=== PATIENT | male | born 1975 | race Caucasian/White ===

== ENCOUNTER 2017-12-22 16:18 | Emergency (ER) | payer SELFPAY ==
[~2017-12-22] VITALS: Ht 185.4 cm; Wt 85.0 kg
[2017-12-22] MEDS ORDERED: chlordiazePOXIDE 25 MG CAP PO STA (17:10)
[2017-12-22 17:12] VITALS: BP 185/107; PULSE 110; RESP 15
[2017-12-22 17:13] VITALS: BP 185/107; PULSE 105
[2017-12-22] MEDS ORDERED: ACETAMINOPHEN 500 MG CPLT PO ONE (17:15)
[2017-12-22] MEDS ORDERED: SODIUM CHLORIDE 0.9% FLUSH 10 ML FLUSH IVF PRN (17:15)
[2017-12-22 17:27] VITALS: BP 169/112; PULSE 113
--- NOTE | 2017-12-22 17:46 | RADRPT ---
EXAM DATE/TIME: 12/22/2017 17:25 [facility] COMPARISON: No previous studies available for comparison. INDICATIONS : Chest pain. MEDICAL HISTORY : None. SURGICAL HISTORY : None. ENCOUNTER: Initial ACUITY: 1 day PAIN SCORE: 6/10 LOCATION: Bilateral chest FINDINGS: A single view of the chest demonstrates the lungs to be symmetrically aerated without evidence of mas s, infiltrate or effusion. The cardiomediastinal contours are unremarkable. Osseous structures are intact. CONCLUSION: No acute disease. Edwar Corea MD FACR on December 22, 2017 at 17:44 Board Certified Radiologist. This report was verified electronically.
[2017-12-22] MEDS ORDERED: LORazepam 2 MG/ML VIAL IV PUSH ONE (18:00)
--- NOTE | 2017-12-22 18:01 | RADRPT ---
EXAM DATE/TIME: 12/22/2017 17:45 [facility] COMPARISON: No previous studies available for comparison. INDICATIONS : Patient complains of dizziness. RADIATION DOSE: 37.53 CTDIvol (mGy) MEDICAL HISTORY : Cardiovascular disease. Hypertension. SURGICAL HISTORY : None. ENCOUNTER: Initial ACUITY: 1 day PAIN SCALE: 0/10 LOCATION: cranial TECHNIQUE: Multiple contiguous axial images were obtained of the head. Using automated exposure control and adj ustment of the mA and/or kV according to patient size, radiation dose was kept as low as reasonably a chievable to obtain optimal diagnostic quality images. DICOM format image data is available electro nically for review and comparison. FINDINGS: CEREBRUM: The ventricles are normal for age. No evidence of midline shift, mass lesion, hemorrhage or acute in farction. No extra-axial fluid collections are seen. POSTERIOR FOSSA: The cerebellum and brainstem are intact. The 4th ventricle is midline. The cerebellopontine angle i s unremarkable. EXTRACRANIAL: The visualized portion of the orbits is intact. There is left-sided ethmoid and maxillary sinus disea se. SKULL: The calvaria is intact. No evidence of skull fracture. CONCLUSION: 1. No acute intracranial abnormalities. Left-sided ethmoid and maxillary sinusitis. Alexander Rivera MD on December 22, 2017 at 17:57 Board Certified Radiologist. This report was verified electronically.
[2017-12-22 18:16] LABS: AUTOMATED NEUTROPHIL # 2.7 TH/MM3 (1.8-7.7); BASOPHIL % 0.6 % (0.0-2.0); HEMATOCRIT 41.2 % (39.0-51.0); HEMOGLOBIN 14.1 GM/DL (13.0-17.0); LYMPH % 24.2 % (9.0-44.0); MEAN CELL VOLUME 91.8 FL (80.0-100.0); MEAN CORPUSCULAR HEMOGLOBIN 31.4 PG (27.0-34.0); MEAN CORPUSCULAR HGB CONC 34.2 % (32.0-36.0); MEAN PLATELET VOLUME 8.4 FL (7.0-11.0); MONO % 10.1 % (0.0-8.0); MONOCYTE # 0.4 TH/MM3 (0-0.9); NEUT % 64.1 % (16.0-70.0); PLATELET COUNT 103 TH/MM3 (150-450); RED BLOOD COUNT 4.49 MIL/MM3 (4.50-5.90); WHITE BLOOD COUNT 4.3 TH/MM3 (4.0-11.0)
[2017-12-22 18:43] LABS: ALBUMIN 3.5 GM/DL (3.4-5.0); ALT (GPT) 59 U/L (12-78); AST (GOT) 87 U/L (15-37); BICARBONATE 28.6 MEQ/L (21.0-32.0); BLOOD UREA NITROGEN 7 MG/DL (7-18); CALCIUM 8.3 MG/DL (8.5-10.1); CHLORIDE 101 MEQ/L (98-107); CREATININE 0.65 MG/DL (0.60-1.30); GLOMERULAR FILTRATION RATE 133 ML/MIN (>89); GLUCOSE,RANDOM 79 MG/DL (74-106); MAGNESIUM 1.7 MG/DL (1.5-2.5); SODIUM (NA) 139 MEQ/L (136-145)
[2017-12-22 18:48] LABS: ALKALINE PHOSPHATASE 91 U/L (45-117); TOTAL BILIRUBIN ADULT 0.5 MG/DL (0.2-1.0); TOTAL PROTEIN 7.7 GM/DL (6.4-8.2); TROPONIN I LESS THAN 0.02 NG/ML (0.02-0.05)
[2017-12-22 19:09] VITALS: BP 156/99; PULSE 100; RESP 20; O2SAT 97
--- NOTE | 2017-12-22 19:16 | PD ---
HPI Chief Complaint: Chest Pain Time Seen by Provider: 17:10 Travel History International Travel<30 days: No Contact w/Intl Traveler<30days: No Traveled to known affect area: No History of Present Illness HPI Is a 42-year-old man presents to the emergency department complaining of chest pain, and left-sided numbness. States that symptoms started today or yesterday. Symptoms are very vague, and is unable to elaborate on them more fully. He does have history of CAD in the past. No history of stroke. No complaints of weakness. No other recent illness or injury. History Past Medical History Narrative Medical CAD, history of stent Tetanus Vaccination: Never Vaccinated Influenza Vaccination: No Social History Alcohol Use: Yes (ETOH ABUSE ) Tobacco Use: Yes (1/2 PPD ) Allergies-Medications (Allergen,Severity, Reaction): Coded Allergies: No Known Drug Allergies (Verified Allergy, Unknown, 12/22/17) Review of Systems Except as stated in HPI: all other systems reviewed are Neg Physical Exam Narrative GENERAL: 42-year-old man, little bit tremulous, nontoxic. SKIN: Focused skin assessment warm/dry. HEAD: Atraumatic. Normocephalic. EYES: Pupils equal and round. No scleral icterus. No injection or drainage. ENT: No nasal bleeding or discharge. Mucous membranes pink and moist. NECK: Trachea midline. No JVD. CARDIOVASCULAR: Regular rate and rhythm. No murmur appreciated. RESPIRATORY: No accessory muscle use. Clear to auscultation. Breath sounds equal bilaterally. GASTROINTESTINAL: Abdomen soft, non-tender, nondistended. Hepatic and splenic margins not palpable. MUSCULOSKELETAL: No obvious deformities. No edema peer NEUROLOGICAL: Awake and alert. No obvious cranial nerve deficits. Motor grossly within normal limits. Normal speech. PSYCHIATRIC: Appropriate mood and affect; insight and judgment normal. Data Data Last Documented VS Vital Signs Date Time Temp Pulse Resp B/P (MAP) Pulse Ox O2 Delivery O2 Flow Rate FiO2 12/22/17 19:09 100 20 156/99 (118) 97 Nasal Cannula 2.00 Orders Orders Chlordiazepoxide (Librium) (12/22/17 17:10) Electrocardiogram (12/22/17 17:10) Complete Blood Count With Diff (12/22/17 17:10) Comprehensive Metabolic Panel (12/22/17 17:10) Magnesium (Mg) (12/22/17 17:10) Troponin I (12/22/17 17:10) Chest, Single Ap (12/22/17 17:10) Ecg Monitoring (12/22/17 17:10) Bilateral Bp Monitoring (12/22/17 17:10) Iv Access Insert/Monitor (12/22/17 17:10) Oximetry (12/22/17 17:10) Oxygen Administration (12/22/17 17:10) Sodium Chloride 0.9% Flush (Ns Flush) (12/22/17 17:15) Ct Brain W/O Iv Contrast(Rout) (12/22/17 ) Acetaminophen (Tylenol) (12/22/17 17:15) Lorazepam Inj (Ativan Inj) (12/22/17 18:00) Labs Laboratory Tests Test 12/22/17 17:30 White Blood Count 4.3 TH/MM3 Red Blood Count 4.49 MIL/MM3 Hemoglobin 14.1 GM/DL Hematocrit 41.2 % Mean Corpuscular Volume 91.8 FL Mean Corpuscular Hemoglobin 31.4 PG Mean Corpuscular Hemoglobin Concent 34.2 % Red Cell Distribution Width 14.0 % Platelet Count 103 TH/MM3 Mean Platelet Volume 8.4 FL Neutrophils (%) (Auto) 64.1 % Lymphocytes (%) (Auto) 24.2 % Monocytes (%) (Auto) 10.1 % Eosinophils (%) (Auto) 1.0 % Basophils (%) (Auto) 0.6 % Neutrophils # (Auto) 2.7 TH/MM3 Lymphocytes # (Auto) 1.0 TH/MM3 Monocytes # (Auto) 0.4 TH/MM3 Eosinophils # (Auto) 0.0 TH/MM3 Basophils # (Auto) 0.0 TH/MM3 CBC Comment DIFF FINAL Differential Comment Blood Urea Nitrogen 7 MG/DL Creatinine 0.65 MG/DL Random Glucose 79 MG/DL Total Protein 7.7 GM/DL Albumin 3.5 GM/DL Calcium Level 8.3 MG/DL Magnesium Level 1.7 MG/DL Alkaline Phosphatase 91 U/L Aspartate Amino Transf (AST/SGOT) 87 U/L Alanine Aminotransferase (ALT/SGPT) 59 U/L Total Bilirubin 0.5 MG/DL Sodium Level 139 MEQ/L Potassium Level 3.5 MEQ/L Chloride Level 101 MEQ/L Carbon Dioxide Level 28.6 MEQ/L Anion Gap 9 MEQ/L Estimat Glomerular Filtration Rate 133 ML/MIN Troponin I LESS THAN 0.02 NG/ML [facility] Medical Decision Making Medical Screen Exam Complete: Yes Emergency Medical Condition: Yes Interpretation(s) Review of EKG: Sinus tachycardia rate 102, normal axis, normal intervals, LABS: CBC is unremarkable CMP is unremarkable Troponin negative Head CT: No acute intracranial abnormality Chest x-ray: Negative. Differential Diagnosis Alcohol withdrawal, ACS, anxiety, malingering, other Narrative Course Medical decision making INITIAL is a 42-year-old man who presents to the emergency department complaining of chest pain, left-sided numbness, and desire to not be discharged from the ED. He does appear to have some mild alcohol withdrawal symptoms little bit tremulousness some elevated heart rate. This improved with oral benzos. He did not receive IV benzos. Patient is requesting to be kept in the hospital because he has no vertigo. Explained that we can give him in the hospital because he is homeless. I do not think he needs further evaluation for complaints, and I think this probably represents more malingering than somatic complaints. Nonetheless cardiac workups unremarkable. A little bit of nonspecific abnormalities and EKG. Recommend outpatient follow-up. Diagnosis Primary Impression: Chest pain Additional Impression: Alcohol withdrawal Patient Instructions: General Instructions Additional Instructions: Avoid excessive alcohol use. Return to the emergency department for any worsening chest pain, numbness tingling or weakness, or any other new or worsening symptoms. Med/Other Pt SpecificInfo: No Change to Meds Disposition: 01 DISCHARGE HOME Condition: Stable Josef Moon MD Dec 22, 2017 19:15
--- NOTE | 2017-12-23 15:54 | EKG ---
Date Performed: 12/22/2017 Time Performed: 17:07:31 PTAGE: 42 years EKG: SINUS TACHYCARDIA NONSPECIFIC ST & T-WAVE ABNORMALITY ABNORMAL RHYTHM ECG NO PREVIOUS TRACING DOCTOR: Jeremy West Interpretating Date/Time 12/23/2017 15:53:25
== END 2017-12-22 19:44 | disposition home or self-care (01) ==
LOC: NEPD 16:18
DX: R07.9 Chest pain, unspecified (principal); F10.239 Alcohol dependence with withdrawal, unspecified; R20.0 Anesthesia of skin; R00.0 Tachycardia, unspecified; R94.31 Abnormal electrocardiogram [ECG] [EKG]; J32.0 Chronic maxillary sinusitis; J32.2 Chronic ethmoidal sinusitis; I25.10 Atherosclerotic heart disease of native coronary artery without angina pectoris; F17.200 Nicotine dependence, unspecified, uncomplicated
CPT/HCPCS: 70450; 71045; 80053; 83735; 84484; 85025; 93005; 99285

== ENCOUNTER 2018-03-25 10:55 | Inpatient (IN) | payer SELFPAY ==
[2018-03-25] VITALS (8 sets, daily range): BP systolic 134–195; BP diastolic 60–133; PULSE 90–129; RESP 16–20; TEMP 99.2–102.1; O2SAT 94–99
[~2018-03-25] VITALS: Ht 182.9 cm; Wt 78.3 kg
[2018-03-25] MEDS ORDERED: ASPI-516 CHEW (11:08)
[2018-03-25] MEDS ORDERED: ATOR40TA16 PO (11:08)
[2018-03-25] MEDS ORDERED: ATEN25TA PO (11:08)
[2018-03-25] MEDS ORDERED: LISI10TA3 PO (11:08)
[2018-03-25] MEDS ORDERED: VANCOMYCIN INJ 1,000 MG in SODIUM CHLOR 0.9% 250 ML INJ 250 ML IV STA (11:09)
[2018-03-25] MEDS ORDERED: SODIUM CHLOR 0.9% 1000 ML INJ 1,000 ML IV ONE (11:15)
[2018-03-25] MEDS ORDERED: ACETAMINOPHEN 325 MG TAB PO ONE (11:15)
[2018-03-25] MEDS ORDERED: PIPERACIL-TAZO 3.375 GM PREMIX 50 ML IV ONE (11:15)
--- NOTE | 2018-03-25 11:23 | PD ---
HPI Chief Complaint: Fever Time Seen by Provider: 10:59 Travel History International Travel<30 days: No Contact w/Intl Traveler<30days: No Traveled to known affect area: No History of Present Illness HPI Patient presents to the emergency department with wounds on lower extremity and fever. States that approximately 3-4 weeks ago he had a wound on his left foot that is since healed. But states that new wounds have appeared on left lower extremity, right lower extremity, and groin, right side of his face. States that the symptoms are new. Was brought in by EMS and given 500 cc normal saline , Accu-Chek was 98, temp was 102.1, heart rate 120, P1 18/62, initial O2 sat was 90% on 2 L he increased to 96%. She states that he is homeless and lives in the [facility]. He is reporting fever and chills, nausea and vomiting (po intake) , drainage from wound. He denies chest pain, shortness of breath, abdominal pain. PFSH Past Medical History Hx Anticoagulant Therapy: No Cardiac Catheterization: Yes Cardiovascular Problems: Yes (HTN ) Coronary Artery Disease: Yes Diabetes: No Hypertension: Yes Myocardial Infarction: Yes Past Surgical History Coronary Stent: Yes (X 3 ) Social History Alcohol Use: Yes (ETOH ABUSE ) Tobacco Use: Yes (1/2 PPD ) Substance Use: No Allergies-Medications (Allergen,Severity, Reaction): Coded Allergies: No Known Drug Allergies (Verified Allergy, Unknown, 12/22/17) Reported Meds & Prescriptions Reported Meds & Active Scripts Active Reported Aspirin 81 Mg Chew 81 Mg CHEW DAILY Atorvastatin (Atorvastatin Calcium) 40 Mg Tab 40 Mg PO HS Lisinopril 10 Mg Tab 10 Mg PO DAILY Atenolol 25 Mg Tab 12.5 Mg PO BID Review of Systems Except as stated in HPI: all other systems reviewed are Neg Physical Exam Narrative GENERAL: No acute distress. SKIN: Focused skin assessment warm/dry. Patient has 2 wounds anterior nixon that are draining a left lower extremity, draining wound left knee, lower extremity wounds in the thigh area, wound right hip, left upper extremity lesion (some lesions appear vesicular) HEAD: Atraumatic. Normocephalic. Right periorbital swelling. EYES: Pupils equal and round. No scleral icterus. No injection or drainage. ENT: No nasal bleeding or discharge. Mucous membranes pink and moist. NECK: Trachea midline. No JVD. CARDIOVASCULAR: Tachycardia. No murmur appreciated. RESPIRATORY: No accessory muscle use. Clear to auscultation. Breath sounds equal bilaterally. GASTROINTESTINAL: Abdomen soft, non-tender, nondistended. Hepatic and splenic margins not palpable. MUSCULOSKELETAL: No obvious deformities. No clubbing. No cyanosis. No edema. NEUROLOGICAL: Awake and alert. No obvious cranial nerve deficits. Motor grossly within normal limits. Normal speech. PSYCHIATRIC: Appropriate mood and affect; insight and judgment normal. Data Data Last Documented VS Vital Signs Date Time Temp Pulse Resp B/P (MAP) Pulse Ox O2 Delivery O2 Flow Rate FiO2 03/25/18 14:26 95 16 142/80 (100) 99 Room Air 03/25/18 12:31 99.2 Orders Orders Sepsis Workup Initiated (03/25/18 ) Electrocardiogram (03/25/18 11:09) Complete Blood Count With Diff (03/25/18 11:09) Comprehensive Metabolic Panel (03/25/18 11:09) Prothrombin Time / Inr (Pt) (03/25/18 11:09) Act Partial Throm Time (Ptt) (03/25/18 11:09) Lactic Acid Sepsis Protocol (03/25/18 11:09) Magnesium (Mg) (03/25/18 11:09) Ckmb (Isoenzyme) Profile (03/25/18 11:09) Troponin I (03/25/18 11:09) Urinalysis - C+S If Indicated (03/25/18 11:09) Blood Culture (03/25/18 11:09) Wound Culture And Gram Stain (03/25/18 11:09) Chest, Single Ap (03/25/18 11:09) Vancomycin Inj (Vancomycin Inj) (03/25/18 11:09) Piperacil-Tazo 3.375 Gm Premix (Zosyn 3. (03/25/18 11:15) Drug Screen, Random Urine (03/25/18 11:09) Acetaminophen (Tylenol) (03/25/18 11:15) B-Type Natriuretic Peptide (03/25/18 11:09) Sodium Chlor 0.9% 1000 Ml Inj (Ns 1000 M (03/25/18 11:15) Knee, Ltd (1 Or 2vws) (03/25/18 11:33) Tibia/Fibula (Ap/Lat) (03/25/18 11:33) CKMB (03/25/18 11:15) CKMB% (03/25/18 11:15) Potassium Chloride (Kcl) (03/25/18 13:15) Admit Order (Ed Use Only) (03/25/18 14:29) Diet Heart Healthy (03/25/18 Dinner) Vital Signs (Adult) NELL.Q4H (03/25/18 14:30) Acetaminophen (Tylenol) (03/25/18 14:30) Atenolol (Tenormin) (03/25/18 21:00) Atorvastatin (Lipitor) (03/25/18 21:00) Lisinopril (Prinivil) (03/26/18 09:00) Labs Laboratory Tests Test 03/25/18 11:15 03/25/18 11:41 White Blood Count 9.1 TH/MM3 Red Blood Count 4.28 MIL/MM3 Hemoglobin 13.6 GM/DL Hematocrit 40.0 % Mean Corpuscular Volume 93.4 FL Mean Corpuscular Hemoglobin 31.7 PG Mean Corpuscular Hemoglobin Concent 34.0 % Red Cell Distribution Width 14.6 % Platelet Count 169 TH/MM3 Mean Platelet Volume 8.1 FL Neutrophils (%) (Auto) 78.7 % Lymphocytes (%) (Auto) 9.9 % Monocytes (%) (Auto) 10.8 % Eosinophils (%) (Auto) 0.1 % Basophils (%) (Auto) 0.5 % Neutrophils # (Auto) 7.2 TH/MM3 Lymphocytes # (Auto) 0.9 TH/MM3 Monocytes # (Auto) 1.0 TH/MM3 Eosinophils # (Auto) 0.0 TH/MM3 Basophils # (Auto) 0.0 TH/MM3 CBC Comment DIFF FINAL Differential Comment Prothrombin Time 10.8 SEC Prothromb Time International Ratio 1.1 RATIO Activated Partial Thromboplast Time 30.1 SEC Blood Urea Nitrogen 9 MG/DL Creatinine 0.72 MG/DL Random Glucose 87 MG/DL Total Protein 8.1 GM/DL Albumin 2.9 GM/DL Calcium Level 8.1 MG/DL Magnesium Level 1.3 MG/DL Alkaline Phosphatase 97 U/L Aspartate Amino Transf (AST/SGOT) 42 U/L Alanine Aminotransferase (ALT/SGPT) 34 U/L Total Bilirubin 0.7 MG/DL Sodium Level 136 MEQ/L Potassium Level 3.3 MEQ/L Chloride Level 98 MEQ/L Carbon Dioxide Level 25.9 MEQ/L Anion Gap 12 MEQ/L Estimat Glomerular Filtration Rate 118 ML/MIN Lactic Acid Level 1.4 mmol/L Total Creatine Kinase 161 U/L Creatine Kinase MB 1.3 NG/ML Troponin I LESS THAN 0.02 NG/ML B-Type Natriuretic Peptide 49 PG/ML Urine Color Mara Urine Turbidity CLEAR Urine pH 6.0 Urine Specific [place] 1.026 Urine Protein 100 mg/dL Urine Glucose (UA) NEG mg/dL Urine Ketones TRACE mg/dL Urine Occult Blood SMALL Urine Nitrite NEG Urine Bilirubin NEG Urine Urobilinogen 4.0 OR GREATER mg/dL Urine Leukocyte Esterase NEG Urine RBC 3 /hpf Urine WBC 3 /hpf Urine Squamous Epithelial Cells <1 /hpf Urine Hyaline Casts 3 /lpf Microscopic Urinalysis Comment CATH-CULT NOT IND Urine Opiates Screen NEG Urine Barbiturates Screen NEG Urine Amphetamines Screen NEG Urine Benzodiazepines Screen NEG Urine Cocaine Screen NEG Urine Cannabinoids Screen POS MDM Medical Decision Making Medical Screen Exam Complete: Yes Emergency Medical Condition: Yes Interpretation(s) ECG: Sinus tach, rate 106, QTc 401, normal axis Labs: Normal WBC count, normal lactate, normal coags, elevated AST, UA-trace ketones, small blood; UDS positive for cannabinoids Last Impressions Tibia/Fibula X-Ray 03/25/18 1133 Signed Impressions: CONCLUSION: 1. Intact well-positioned lateral malleolus fixation hardware. 2. No acute fracture or dislocation. Knee X-Ray 03/25/18 1133 Signed Impressions: CONCLUSION: 1. No acute fracture or dislocation. Chest X-Ray 03/25/18 1109 Signed Impressions: CONCLUSION: No acute cardiopulmonary findings are identified. Differential Diagnosis Cellulitis, pneumonia, UTI, sepsis, abscess, herpes Narrative Course He presents to the emergency department with skin infections, fever, and tachycardia. Concern for sepsis. Patient placed on gambling monitor, IV access obtained, EKG/x-ray/labs ordered with IV 1 g vancomycin and 3.375g Zosyn and 1 g of Tylenol p.o. As well as 1 L IV normal saline. 1312: Patient given 20 mEQ of potassium p.o. 1432: HR 94, temp 99.1. Patient has been admitted. Sepsis Criteria SIRS Criteria (2 or more): Temp > 100.9 or < 96.8, Heart rate over 90 Sepsis Criteria (SIRS+source): Infect source susp/known Diagnosis Primary Impression: Cellulitis Qualified Codes: L03.119 - Cellulitis of unspecified part of limb Additional Impression: Hypokalemia Admitting Information Admitting Physician Requests: Admit Condition: Stable Grecia Loza MD Mar 25, 2018 11:23
[2018-03-25 11:29] LABS: AUTOMATED NEUTROPHIL # 7.2 TH/MM3 (1.8-7.7); BASOPHIL % 0.5 % (0.0-2.0); EOSINOPHIL % 0.1 % (0.0-4.0); HEMOGLOBIN 13.6 GM/DL (13.0-17.0); LYMPH % 9.9 % (9.0-44.0); LYMPHOCYTE # 0.9 TH/MM3 (1.0-4.8); MEAN CELL VOLUME 93.4 FL (80.0-100.0); MEAN CORPUSCULAR HEMOGLOBIN 31.7 PG (27.0-34.0); MEAN PLATELET VOLUME 8.1 FL (7.0-11.0); MONO % 10.8 % (0.0-8.0); NEUT % 78.7 % (16.0-70.0); PLATELET COUNT 169 TH/MM3 (150-450); RED BLOOD COUNT 4.28 MIL/MM3 (4.50-5.90); RED CELL DISTRIBUTION WIDTH 14.6 % (11.6-17.2); WHITE BLOOD COUNT 9.1 TH/MM3 (4.0-11.0)
--- NOTE | 2018-03-25 11:38 | RADRPT ---
EXAM DATE: 03/25/2018 11:31 AM EDT AGE/SEX: 43 years / Male INDICATIONS: Fever. Possible infection of abrasions on his skin CLINICAL DATA: This is the patient's initial encounter. Patient reports that signs and symptoms have been present for 1 day and indicates a pain score of 0/10. MEDICAL/SURGICAL HISTORY: . heart attack . coronary artery stents COMPARISON: [facility], CHEST SINGLE AP, 12/22/2017. . FINDINGS: A single AP view of the chest demonstrates the lungs to be symmetrically aerated without evidence of mass, infiltrate or effusion. The cardiomediastinal contours are unremarkable. Osseous structures d emonstrate old healed fracture of the left anterior ninth rib. CONCLUSION: No acute cardiopulmonary findings are identified. Electronically signed by: Ray Corea MD 03/25/2018 11:36 AM EDT
[2018-03-25 11:44] LABS: INTERNATIONAL NORMALIZED RATIO 1.1 RATIO; PROTHROMBIN TIME - PATIENT 10.8 SEC (9.8-11.6)
[2018-03-25 11:52] LABS: ALBUMIN 2.9 GM/DL (3.4-5.0); ALT (GPT) 34 U/L (12-78); AST (GOT) 42 U/L (15-37); BICARBONATE 25.9 MEQ/L (21.0-32.0); BLOOD UREA NITROGEN 9 MG/DL (7-18); CALCIUM 8.1 MG/DL (8.5-10.1); CHLORIDE 98 MEQ/L (98-107); CREATININE 0.72 MG/DL (0.60-1.30); GLOMERULAR FILTRATION RATE 118 ML/MIN (>89); GLUCOSE,RANDOM 87 MG/DL (74-106); MAGNESIUM 1.3 MG/DL (1.5-2.5); SODIUM (NA) 136 MEQ/L (136-145)
[2018-03-25 11:57] LABS: ALKALINE PHOSPHATASE 97 U/L (45-117); TOTAL BILIRUBIN ADULT 0.7 MG/DL (0.2-1.0); TOTAL PROTEIN 8.1 GM/DL (6.4-8.2); TROPONIN I LESS THAN 0.02 NG/ML (0.02-0.05)
[2018-03-25 12:12] LABS: BLOOD, URINE SMALL (NEG); GLUCOSE,URINE NEG (NEG); HYALINE CAST, URINE 3 /lpf (RARE); KETONE, URINE TRACE mg/dL (NEG); NITRITE,URINE NEG (NEG); SQUAMOUS EPITHELIAL CELL URINE <1 /hpf (0-5); URINE COLOR Amber (YELLW/STRAW); URINE LEUKOCYTE ESTERASE NEG (NEG)
[2018-03-25 12:20] LABS: BILIRUBIN, URINE NEG (NEG)
--- NOTE | 2018-03-25 13:14 | RADRPT ---
EXAM DATE: 03/25/2018 1:05 PM EDT AGE/SEX: 43 years / Male INDICATIONS: Anterior left lower leg abrasions and wounds. Patient fell several days ago. CLINICAL DATA: This is the patient's initial encounter. Patient reports that signs and symptoms have been present for 4 - 6 days and indicates a pain score of 6/10. MEDICAL/SURGICAL HISTORY: None. . ORIF left fibula. Left 5th toe amputation. COMPARISON: No prior exams available for comparison. FINDINGS: Plate and screw fixation of the distal fibula/lateral malleolus. Hardware appears intact and well-pos itioned. Bony structures are intact and in normal alignment. Osseous density is normal. Soft tissues are unremarkable. No radiopaque foreign bodies seen. CONCLUSION: 1. Intact well-positioned lateral malleolus fixation hardware. 2. No acute fracture or dislocation. Electronically signed by: Sean Babcock MD 03/25/2018 1:13 PM EDT
[2018-03-25] MEDS ORDERED: POTASSIUM CHLORIDE 20 MEQ CONTROLLED RELEASE TAB PO ONE (13:15)
--- NOTE | 2018-03-25 13:15 | RADRPT ---
EXAM DATE: 03/25/2018 1:02 PM EDT AGE/SEX: 43 years / Male INDICATIONS: Anterior left knee abrasions and swelling. Patient fell several days ago. CLINICAL DATA: This is the patient's initial encounter. Patient reports that signs and symptoms have been present for 4 - 6 days and indicates a pain score of 6/10. MEDICAL/SURGICAL HISTORY: None. None. COMPARISON: No prior exams available for comparison. FINDINGS: Bony structures are intact and in normal alignment. Joints are intact without dislocation or signifi cant arthropathy. Osseous density is normal. Soft tissues are unremarkable. No radiopaque foreign bodies seen. CONCLUSION: 1. No acute fracture or dislocation. Electronically signed by: Sean Babcock MD 03/25/2018 1:13 PM EDT
[2018-03-25] MEDS ORDERED: ACETAMINOPHEN 325 MG TAB PO PRN (14:30)
[2018-03-25] MEDS ORDERED: Vancomycin Consult Pharmacy 1 EA OTHER SCH (14:45)
[2018-03-25] MEDS ORDERED: FLUMAZENIL 0.5 MG/5 ML VIAL IV PUSH PRN (15:30)
[2018-03-25] MEDS ORDERED: LORazepam 2 MG TAB PO PRN (15:30)
[2018-03-25] MEDS ORDERED: LORazepam 2 MG/ML VIAL IV PUSH PRN ×4 (15:30)
[2018-03-25] MEDS ORDERED: PILL SPLITTER OTHER PRN (15:30)
--- NOTE | 2018-03-25 15:48 | HHI.HP ---
[facility] No Primary Care Physician Admission Diagnosis cellulitis, Diagnoses: (1) Cellulitis Diagnosis: Principal Chief Complaint: infection of the left leg Travel History International Travel<30 Days: No Contact w/Intl Traveler <30 Da: No Traveled to Known Affected Are: No Sepsis Criteria SIRS Criteria (2 or more): Temp > 100.9 or < 96.8, Heart rate over 90 Sepsis Criteria (SIRS+source): Infect source susp/known Criteria Outcome: Meets sepsis criteria History of Present Illness patient is a 43 y/o male, homeless, with history of CAD, dyslipidemia and hypertension, who presented to ER with redness and pain to the left leg. he says that he noticed a couple of wounds on his left leg two weeks ago which gradually got worse. he says that he 'keeps having wounds on his legs'. he's not sure if he had any fever. pain to the left leg is moderate. he doesn't recall any insect bites but he says that he fell on his left knee two weeks ago.he says that he stopped taking his medications while ago. Review of Systems Constitutional: DENIES: Fever, Weight loss, Chills, Night Sweats Eyes: DENIES: Blurred vision, Diplopia, Vision loss, Double Vision Ears, nose, mouth, throat: DENIES: Tinnitus, Vertigo, Throat pain, Epistaxis Respiratory: DENIES: Apneas, Cough, Snoring, Wheezing, Hemoptysis, Sputum production, Shortness of breath Cardiovascular: DENIES: Chest pain, Palpitations, Syncope, Dyspnea on Exertion , PND, Lower Extremity Edema, Orthopnea, Claudication Gastrointestinal: DENIES: Abdominal pain, Black stools, Bloody stools, Constipation, Diarrhea, Nausea, Vomiting, Difficulty Swallowing, Anorexia Genitourinary: DENIES: Urinary frequency, Urgency, Hematuria, Dysuria Musculoskeletal: COMPLAINS OF: Joint pain, DENIES: Muscle aches, Stiffness, Joint Swelling Integumentary: DENIES: Rash Neurologic: DENIES: Abnormal gait, Headache, Localized weakness, Paresthesias, Seizures, Speech Problems, Tremor, Poor Balance Psychiatric: DENIES: Anxiety, Confusion, Mood changes, Depression, Hallucinations, Agitation, Suicidal Ideation, Homicidal Ideation, Delusions Past Family Social History Past Medical History hypertension/ dyslipidemia Past Surgical History cardiac stent placement/ foot surgery. Reported Medications atenolol/ lisinopril/ atorvastatin/aspirin Allergies: Coded Allergies: No Known Drug Allergies (Verified Allergy, Unknown, 12/22/17) Active Ordered Medications Inpatient Medications Acetaminophen (Tylenol) 650 mg Q4H PRN PO FEVER/PAIN 1-10; Start 03/25/18 at 14 :30 Atenolol (Tenormin) 12.5 mg BID PO ; Start 03/25/18 at 21:00 Atorvastatin Calcium (Lipitor) 40 mg HS PO ; Start 03/25/18 at 21:00 Lisinopril (Prinivil) 10 mg DAILY PO ; Start 03/26/18 at 09:00 Miscellaneous (Pill Splitter) 1 ea UNSCH PRN OTHER SEE LABEL COMMENTS; Start at 15:30 Pharmacy Profile Note 0 ml @ 0 mls/hr UNSCH OTHER ; Start 03/25/18 at 14:45 Piperacillin Sod/ Tazobactam Sod 50 ml @ 100 mls/hr Q6H IV ; Start 03/25/18 at 18:00 Potassium Chloride (KCl) 20 meq ONCE ONCE PO Last administered on 03/25/18at 13 :57; Start 03/25/18 at 13:15; Stop 03/25/18 at 13:16; Status DC Sodium Chloride 1,000 ml @ 999 mls/hr BOLUS ONCE IV Last administered on 03/25at 11:28; Start 03/25/18 at 11:15; Stop 03/25/18 at 12:15; Status DC Vancomycin HCl 1000 mg/Sodium Chloride 250 ml @ 250 mls/hr ONCE STAT IV Last administered on 03/25/18at 12:29; Start 03/25/18 at 11:09; Stop 03/25/18 at 12:08 ; Status DC Family History not related to this admission. Social History smokes a pack a day. drinks almost daily. Physical Exam Vital Signs Vital Signs Date Time Temp Pulse Resp B/P (MAP) Pulse Ox O2 Delivery O2 Flow Rate FiO2 03/25/18 15:19 95 16 138/87 (104) 97 Room Air 03/25/18 14:26 95 16 142/80 (100) 99 Room Air 03/25/18 12:31 99.2 109 18 141/65 (90) 99 Room Air 03/25/18 11:03 130 18 96 Room Air 03/25/18 11:03 129 18 153/79 (103) 97 Room Air 03/25/18 10:58 102.1 123 18 157/80 (105) 94 Physical Exam GENERAL: This is a well-nourished, well-developed patient, in no apparent distress. SKIN: open wounds noted on the left leg - a few dry wounds noted on the right lower extremity. HEAD: Atraumatic. Normocephalic. No temporal or scalp tenderness. EYES: Pupils equal round and reactive. Extraocular motions intact. No scleral icterus. No injection or drainage. ENT: Nose without bleeding, purulent drainage or septal hematoma. Throat without erythema, tonsillar hypertrophy or exudate. Uvula midline. Airway patent. NECK: Trachea midline. No JVD or lymphadenopathy. Supple, nontender, no meningeal signs. CARDIOVASCULAR: Regular rate and rhythm without murmurs, gallops, or rubs. RESPIRATORY: Clear to auscultation. Breath sounds equal bilaterally. No wheezes , rales, or rhonchi. GASTROINTESTINAL: Abdomen soft, non-tender, nondistended. No hepato-splenomegaly , or palpable masses. No guarding. MUSCULOSKELETAL: erythema noted over the left leg. NEUROLOGICAL: Awake and alert. Cranial nerves II through XII intact. Motor and sensory grossly within normal limits. Five out of 5 muscle strength in all muscle groups. Normal speech. Laboratory Laboratory Tests Test 03/25/18 11:15 03/25/18 11:41 White Blood Count 9.1 Red Blood Count 4.28 Hemoglobin 13.6 Hematocrit 40.0 Mean Corpuscular Volume 93.4 Mean Corpuscular Hemoglobin 31.7 Mean Corpuscular Hemoglobin Concent 34.0 Red Cell Distribution Width 14.6 Platelet Count 169 Mean Platelet Volume 8.1 Neutrophils (%) (Auto) 78.7 Lymphocytes (%) (Auto) 9.9 Monocytes (%) (Auto) 10.8 Eosinophils (%) (Auto) 0.1 Basophils (%) (Auto) 0.5 Neutrophils # (Auto) 7.2 Lymphocytes # (Auto) 0.9 Monocytes # (Auto) 1.0 Eosinophils # (Auto) 0.0 Basophils # (Auto) 0.0 CBC Comment DIFF FINAL Differential Comment Prothrombin Time 10.8 Prothromb Time International Ratio 1.1 Activated Partial Thromboplast Time 30.1 Blood Urea Nitrogen 9 Creatinine 0.72 Random Glucose 87 Total Protein 8.1 Albumin 2.9 Calcium Level 8.1 Magnesium Level 1.3 Alkaline Phosphatase 97 Aspartate Amino Transf (AST/SGOT) 42 Alanine Aminotransferase (ALT/SGPT) 34 Total Bilirubin 0.7 Sodium Level 136 Potassium Level 3.3 Chloride Level 98 Carbon Dioxide Level 25.9 Anion Gap 12 Estimat Glomerular Filtration Rate 118 Lactic Acid Level 1.4 Total Creatine Kinase 161 Creatine Kinase MB 1.3 Troponin I LESS THAN 0.02 B-Type Natriuretic Peptide 49 Urine Color Mara Urine Turbidity CLEAR Urine pH 6.0 Urine Specific [place] 1.026 Urine Protein 100 Urine Glucose (UA) NEG Urine Ketones TRACE Urine Occult Blood SMALL Urine Nitrite NEG Urine Bilirubin NEG Urine Urobilinogen 4.0 OR GREATER Urine Leukocyte Esterase NEG Urine RBC 3 Urine WBC 3 Urine Squamous Epithelial Cells <1 Urine Hyaline Casts 3 Microscopic Urinalysis Comment CATH-CULT NOT IND Urine Opiates Screen NEG Urine Barbiturates Screen NEG Urine Amphetamines Screen NEG Urine Benzodiazepines Screen NEG Urine Cocaine Screen NEG Urine Cannabinoids Screen POS Date/Time Source Procedure Growth Status 03/25/18 11:15 Blood Peripheral Aerobic Blood Culture Pending Received 03/25/18 11:15 Blood Peripheral Anaerobic Blood Culture Pending Received 03/25/18 11:30 Wound Leg Gram Stain - Final Resulted 03/25/18 11:30 Wound Leg Wound Culture Pending Resulted Result Diagram: 03/25/18 1115 03/25/18 1115 Imaging Last Impressions Tibia/Fibula X-Ray 03/25/18 1133 Signed Impressions: CONCLUSION: 1. Intact well-positioned lateral malleolus fixation hardware. 2. No acute fracture or dislocation. Knee X-Ray 03/25/18 1133 Signed Impressions: CONCLUSION: 1. No acute fracture or dislocation. Chest X-Ray 03/25/18 1109 Signed Impressions: CONCLUSION: No acute cardiopulmonary findings are identified. Caprini VTE Risk Assessment Caprini VTE Risk Assessment: Mod/High Risk (score >= 2) Caprini Risk Assessment Model Point Value = 1 Point Value = 2 Point Value = 3 Point Value = 5 Age 41-60 Minor surgery BMI > 25 kg/m2 Swollen legs Varicose veins or History of unexplained or recurrent spontaneous Oral contraceptives or hormone replacement Sepsis (< 1 month) Serious lung disease, including pneumonia (< 1 month) Abnormal pulmonary function Acute myocardial infarction Congestive heart failure (< 1 month) History of inflammatory bowel disease Medical patient at bed rest Age 61-74 Arthroscopic surgery Major open surgery (> 45 min) Laparoscopic surgery (> 45 min) Malignancy Confined to bed (> 72 hours) Immobilizing plaster cast Central venous access Age >= 75 History of VTE Family history of VTE Factor V Leiden Prothrombin [id number] Lupus anticoagulant Anticardiolipin antibodies Elevated serum homocysteine Heparin-induced thrombocytopenia Other congenital or acquired thrombophilia Stroke (< 1 month) Elective arthroplasty Hip, pelvis, or leg fracture Acute spinal cord injury (< 1 month) Prophylaxis Regimen Total Risk Factor Score Risk Level Prophylaxis Regimen 0-1 Low Early ambulation 2 Moderate Order ONE of the following: *Sequential Compression Device (SCD) *Heparin 5000 units SQ BID 3-4 Higher Order ONE of the following medications: *Heparin 5000 units SQ TID *Enoxaparin/Lovenox 40 mg SQ daily (WT < 150 kg, CrCl > 30 mL/min) *Enoxaparin/Lovenox 30 mg SQ daily (WT < 150 kg, CrCl > 10-29 mL/min) *Enoxaparin/Lovenox 30 mg SQ BID (WT < 150 kg, CrCl > 30 mL/min) AND/OR *Sequential Compression Device (SCD) 5 or more Highest Order ONE of the following medications: *Heparin 5000 units SQ TID (Preferred with Epidurals) *Enoxaparin/Lovenox 40 mg SQ daily (WT < 150 kg, CrCl > 30 mL/min) *Enoxaparin/Lovenox 30 mg SQ daily (WT < 150 kg, CrCl > 10-29 mL/min) *Enoxaparin/Lovenox 30 mg SQ BID (WT < 150 kg, CrCl > 30 mL/min) AND *Sequential Compression Device (SCD) Assessment and Plan Assessment and Plan A/P - sepsis due to cellulitis of the left leg continue with broad spectrum IV antibiotics- leg elevation- continue with pain control- will follow the cultures and consult ID. -CAD/ hypertension/ dyslipidemia; resume home meds. ( patient says that he stopped taking his medications while ago). -chronic smoker/ alcohol abuse; start on nicotine patch and CIWA protocol. -hypokalemia/hypomagnesemia; will replace and monitor. -consult case management since the patient is homeless. -DVT prophylaxis; subq Lovenox Discussed Condition With ER physician and the patient. Physician Certification 2 Midnight Certification Type: Admission for Inpatient Services Order for Inpatient Services The services are ordered in accordance with Medicare regulations or non- Medicare payer requirements, as applicable. In the case of services not specified as inpatient-only, they are appropriately provided as inpatient services in accordance with the 2-midnight benchmark. Estimated LOS (days): 2 days is the estimated time the patient will need to remain in the hospital, assuming treatment plan goals are met and no additional complications. Post-Hospital Plan: Home Problem Qualifiers (1) Cellulitis: Qualified Codes: L03.119 - Cellulitis of unspecified part of limb Dwight Cook MD Mar 25, 2018 15:48
[2018-03-25] MEDS: NICOTINE 21 MG/24 HR PATCH T-DERMAL SCH (16:36)
[2018-03-25] MEDS: MAGNESIUM OXIDE 400 MG TAB PO SCH ×2 (16:36→20:31)
[2018-03-25] MEDS: PIPERACIL-TAZO 3.375 GM PREMIX 50 ML IV SCH ×2 (18:00→19:00)
--- NOTE | 2018-03-25 18:42 | MB ---
cc: Wilson Hyatt MD DATE: 03/25/2018 REQUESTING PHYSICIAN: Dr. Dwight Cook. REASON FOR CONSULTATION: Cellulitis of the left leg. HISTORY OF PRESENT ILLNESS: This is a 43-year-old white male who was brought into the emergency department today with fever. The patient notes that he developed a wound on his left foot approximately 4 weeks ago, and after that, he started getting new lesions all over his legs and at the groin. He also notes that recently he has been having swelling of his right eyelid and when he woke up in the morning, his right eye would be shut because of the swelling. He was brought to the emergency department by EMS and was noted to have a temperature of 102.1 degrees. The patient also reported he was complaining of fever and chills and nausea and vomiting. The patient denies other symptoms except for generalized aches of his body. He notes heavy alcohol intake. He thinks he possibly could have been bitten by an insect in the [place] before this all began. His white blood cell count is 9.1. He denies IV drug use. Blood cultures were drawn and the results are pending. The culture of the wound of the left leg is pending. PAST MEDICAL HISTORY: Hypertension and dyslipidemia. PAST SURGICAL HISTORY: History of cardiac stent and history of surgery on the foot. ALLERGIES: NO KNOWN DRUG ALLERGIES. MEDICATIONS: 1. Vancomycin. 2. Piperacillin-tazobactam. 3. Lipitor. 4. Tenormin. 5. Aspirin. 6. Theragran. 7. Nicotine patch. 8. Magnesium oxide. SOCIAL HISTORY: Positive tobacco use, half a pack a day. Positive alcohol use. Denies IV drug use. The patient notes that he was recently and moved from [place], [place] to [place] to try to get his life going again. He was born in [place]. FAMILY HISTORY: Noncontributory. REVIEW OF SYSTEMS: Pertinent mentioned above in history of present illness. PHYSICAL EXAMINATION: GENERAL: Well-developed male who is in no acute distress. He looks chronically ill. VITAL SIGNS: Includes temperature 99.2, BP 134/60, respirations 16, heart rate 90. HEENT: Head is atraumatic. The right eye stuck shut with purulent creamy crusted debris. The left eye opens freely and has no visible lesions. The left pupil is reactive and has no icterus. Oropharynx mucosa is moist. Positive thrush on the tongue. NECK: Supple without adenopathy. LUNGS: Clear breath sounds. HEART: Regular S1, S2, without murmurs, rubs or gallops. ABDOMEN: Bowel sounds present. Soft, nontender. RECTAL: Not performed. EXTREMITIES: The left leg is erythematous and there are a few erythematous lesions including a long lesion which has raised edges and pale white creamy edges. The other lesions also had some pale creamy raised edges. There are lesions of the tibia, thigh, right groin and also left leg. SKIN: Diffuse erythematous hue of the chest, face, neck and arms. Skin warm and moist. No diffuse rash appreciated. NEUROLOGIC: No gross focal finding. PSYCHIATRIC: Patient is calm and cooperative. LABORATORY DATA: WBC 9.1, platelets 169, 78% neutrophils. Creatinine 0.72, BUN 9, sodium 136, AST 42, ALT 34, alkaline phosphatase 97. Drug toxicology screen positive for cannabinoids. IMPRESSION: 1. Cellulitis involving the left leg. The patient has multiple skin lesions suggesting superficial skin abscesses. 2. Oral thrush. 3. Possible sepsis. The patient presented with elevated temperature and heart rate. However, lactic acid level is normal. RECOMMENDATIONS: 1. Continue vancomycin. 2. Continue piperacillin-tazobactam. 3. Follow wound culture. 4. Follow blood cultures. 5. Follow clinical status. 6. Nystatin swish and swallow for oral thrush. 7. Saline eyedrops can be applied to the eyes to help clean off the debris so the patient can open his eyes freely. Thank you for this consultation. I will follow the patient's progress along with you. MD FRACISCO Clements/KIM , 05:36 PM , 06:41 PM
[2018-03-25] MEDS: NYSTATIN SUSP 500,000 U/5 ML CUP SWISH-SWAL SCH (20:30)
[2018-03-25] MEDS: LORazepam 1 MG TAB PO PRN (20:31)
[2018-03-25] MEDS: ATENOLOL 25 MG TAB PO SCH (20:32)
[2018-03-25] MEDS: ATORVASTATIN 40 MG TAB PO SCH (20:32)
[2018-03-25] MEDS: ACETAMINOPHEN/HYDROcodone 325 MG/5 MG TAB PO PRN (20:35)
[2018-03-26] VITALS (7 sets, daily range): BP systolic 142–179; BP diastolic 95–117; PULSE 83–102; RESP 18–20; TEMP 98.2–99.2; O2SAT 95–97
[2018-03-26] MEDS: PIPERACIL-TAZO 3.375 GM PREMIX 50 ML IV SCH ×4 (01:50→19:20)
[2018-03-26] MEDS: VANCOMYCIN 1,000 MG/NS 250 ML IV SCH ×4 (01:50→12:19)
[2018-03-26] MEDS: LORazepam 1 MG TAB PO PRN (02:09)
[2018-03-26] MEDS: ACETAMINOPHEN/HYDROcodone 325 MG/5 MG TAB PO PRN ×2 (02:10→10:05)
[2018-03-26 07:52] LABS: BICARBONATE 26.3 MEQ/L (21.0-32.0); CALCIUM 8.5 MG/DL (8.5-10.1); CREATININE 0.51 MG/DL (0.60-1.30); MAGNESIUM 1.3 MG/DL (1.5-2.5)
[2018-03-26] MEDS: REMOVE OLD PATCH T-DERMAL SCH (09:00)
[2018-03-26] MEDS: ENOXAPARIN SODIUM 40 MG/0.4 ML SYRINGE SQ SCH (09:51)
[2018-03-26] MEDS: ATENOLOL 25 MG TAB PO SCH ×2 (09:51→20:27)
[2018-03-26] MEDS: ASPIRIN 81 MG CHEW TAB CHEW SCH (09:51)
[2018-03-26] MEDS: MAGNESIUM OXIDE 400 MG TAB PO SCH ×2 (09:51→20:26)
[2018-03-26] MEDS: NYSTATIN SUSP 500,000 U/5 ML CUP SWISH-SWAL SCH ×4 (09:52→20:27)
[2018-03-26] MEDS: LISINOPRIL 10 MG TAB PO SCH (09:52)
[2018-03-26] MEDS: MULTIVITAMIN TAB PO SCH (09:52)
[2018-03-26] MEDS: NICOTINE 21 MG/24 HR PATCH T-DERMAL SCH (09:56)
[2018-03-26] MEDS ORDERED: ARTIFICIAL TEARS OPTH SOLN 15 ML BTL EACH EYE PRN (10:30)
[2018-03-26] MEDS ORDERED: THIAMINE HCL 100 MG TAB PO ONE (10:30)
[2018-03-26] MEDS ORDERED: MAGNESIUM SULFATE 4 GM PREMIX 100 ML IV ONE (10:30)
[2018-03-26] MEDS ORDERED: POTASSIUM CHLORIDE 20 MEQ CONTROLLED RELEASE TAB PO ONE ×2 (10:30→14:30)
[2018-03-26] MEDS ORDERED: FOLIC ACID 1 MG TAB PO ONE (10:30)
--- NOTE | 2018-03-26 10:40 | HHI.PR ---
Subjective Remarks patient is a 43 y/o male, homeless, with history of CAD, dyslipidemia and hypertension, who presented to ER with redness and pain to the left leg. he says that he noticed a couple of wounds on his left leg two weeks ago which gradually got worse. he says that he 'keeps having wounds on his legs'. he's not sure if he had any fever. pain to the left leg is moderate. he doesn't recall any insect bites but he says that he fell on his left knee two weeks ago.he says that he stopped taking his medications while ago. 03-26 PATIENT HAS MULTIPLE WOUNDS ON HIS BODY IS HOMELESS AND STATES [place] RN AND PT SEEN BY ID ON ZOSYN AND VANCO REPLACE POTASSIUM AND MAGNESIUM AM LABS Objective Vitals Vital Signs Date Time Temp Pulse Resp B/P (MAP) Pulse Ox O2 Delivery O2 Flow Rate FiO2 03/26/18 04:25 102 03/26/18 04:12 Room Air 03/26/18 04:00 99.2 97 18 142/99 (113) 95 03/26/18 00:00 Room Air 03/26/18 00:00 98.8 92 18 179/117 (137) 97 03/26/18 00:00 97 03/25/18 20:00 123 03/25/18 20:00 Room Air 03/25/18 20:00 100.4 126 18 177/133 (148) 98 03/25/18 18:18 100.0 114 20 195/122 (146) 96 03/25/18 16:39 90 16 134/60 (84) 99 Room Air 03/25/18 15:19 95 16 138/87 (104) 97 Room Air 03/25/18 14:26 95 16 142/80 (100) 99 Room Air 03/25/18 12:31 99.2 109 18 141/65 (90) 99 Room Air 03/25/18 11:03 130 18 96 Room Air 03/25/18 11:03 129 18 153/79 (103) 97 Room Air 03/25/18 10:58 102.1 123 18 157/80 (105) 94 I/O 03/25/18 03/25/18 03/25/18 03/26/18 03/26/18 03/26/18 07:00 15:00 23:00 07:00 15:00 23:00 Intake Total 1300 ml 50 ml 350 ml Balance 1300 ml 50 ml 350 ml Intake IV Total 1300 ml 50 ml 350 ml Result Diagram: 03/25/18 1115 03/26/18 0524 Other Results Laboratory Tests Test 03/25/18 11:15 03/25/18 11:41 03/26/18 05:24 White Blood Count 9.1 TH/MM3 Red Blood Count 4.28 MIL/MM3 Hemoglobin 13.6 GM/DL Hematocrit 40.0 % Mean Corpuscular Volume 93.4 FL Mean Corpuscular Hemoglobin 31.7 PG Mean Corpuscular Hemoglobin Concent 34.0 % Red Cell Distribution Width 14.6 % Platelet Count 169 TH/MM3 Mean Platelet Volume 8.1 FL Neutrophils (%) (Auto) 78.7 % Lymphocytes (%) (Auto) 9.9 % Monocytes (%) (Auto) 10.8 % Eosinophils (%) (Auto) 0.1 % Basophils (%) (Auto) 0.5 % Neutrophils # (Auto) 7.2 TH/MM3 Lymphocytes # (Auto) 0.9 TH/MM3 Monocytes # (Auto) 1.0 TH/MM3 Eosinophils # (Auto) 0.0 TH/MM3 Basophils # (Auto) 0.0 TH/MM3 CBC Comment DIFF FINAL Differential Comment Prothrombin Time 10.8 SEC Prothromb Time International Ratio 1.1 RATIO Activated Partial Thromboplast Time 30.1 SEC Blood Urea Nitrogen 9 MG/DL 9 MG/DL Creatinine 0.72 MG/DL 0.51 MG/DL Random Glucose 87 MG/DL 86 MG/DL Total Protein 8.1 GM/DL Albumin 2.9 GM/DL Calcium Level 8.1 MG/DL 8.5 MG/DL Magnesium Level 1.3 MG/DL 1.3 MG/DL Alkaline Phosphatase 97 U/L Aspartate Amino Transf (AST/SGOT) 42 U/L Alanine Aminotransferase (ALT/SGPT) 34 U/L Total Bilirubin 0.7 MG/DL Sodium Level 136 MEQ/L 132 MEQ/L Potassium Level 3.3 MEQ/L 3.4 MEQ/L Chloride Level 98 MEQ/L 95 MEQ/L Carbon Dioxide Level 25.9 MEQ/L 26.3 MEQ/L Anion Gap 12 MEQ/L 11 MEQ/L Estimat Glomerular Filtration Rate 118 ML/MIN 176 ML/MIN Lactic Acid Level 1.4 mmol/L Total Creatine Kinase 161 U/L Creatine Kinase MB 1.3 NG/ML Troponin I LESS THAN 0.02 NG/ML C-Reactive Protein 11.00 MG/DL B-Type Natriuretic Peptide 49 PG/ML Urine Color Mara Urine Turbidity CLEAR Urine pH 6.0 Urine Specific [place] 1.026 Urine Protein 100 mg/dL Urine Glucose (UA) NEG mg/dL Urine Ketones TRACE mg/dL Urine Occult Blood SMALL Urine Nitrite NEG Urine Bilirubin NEG Urine Urobilinogen 4.0 OR GREATER mg/dL Urine Leukocyte Esterase NEG Urine RBC 3 /hpf Urine WBC 3 /hpf Urine Squamous Epithelial Cells <1 /hpf Urine Hyaline Casts 3 /lpf Microscopic Urinalysis Comment CATH-CULT NOT IND Urine Opiates Screen NEG Urine Barbiturates Screen NEG Urine Amphetamines Screen NEG Urine Benzodiazepines Screen NEG Urine Cocaine Screen NEG Urine Cannabinoids Screen POS Imaging Last Impressions Tibia/Fibula X-Ray 03/25/18 1133 Signed Impressions: CONCLUSION: 1. Intact well-positioned lateral malleolus fixation hardware. 2. No acute fracture or dislocation. Knee X-Ray 03/25/18 1133 Signed Impressions: CONCLUSION: 1. No acute fracture or dislocation. Chest X-Ray 03/25/18 1109 Signed Impressions: CONCLUSION: No acute cardiopulmonary findings are identified. Objective Remarks GENERAL: Awake alert and oriented 3 talkative and cooperative SKIN: Warm and dry. Multiple wounds on upper extremities lower extremities throughout his body-LEFT LOWER EXTREMITY ERYTHEMA STILL HEAD: Atraumatic. Normocephalic. EYES: Pupils equal and round. No scleral icterus. No injection or drainage. Crusting in bilateral eyes possible conjunctivitis ENT: No nasal bleeding or discharge. Mucous membranes pink and moist. Tongue is midline NECK: Trachea midline. No JVD. Supple CARDIOVASCULAR: Regular rate and rhythm. S1-S2 no S3 or S4 RESPIRATORY: No accessory muscle use. Clear to auscultation. Breath sounds equal bilaterally. GASTROINTESTINAL: Abdomen soft, non-tender, nondistended. Hepatic and splenic margins not palpable. MUSCULOSKELETAL: Extremities without clubbing, cyanosis, or edema. No obvious deformities. NEUROLOGICAL: Awake and alert. No obvious cranial nerve deficits. Motor grossly within normal limits. Five out of 5 muscle strength in the arms and legs. Normal speech. PSYCHIATRIC: Appropriate mood and affect; insight and judgment normal. Medications and IVs Current Medications Vancomycin HCl 1000 mg/Sodium Chloride 250 ml @ 250 mls/hr ONCE STAT IV Last administered on 03/25/18at 12:29; Start 03/25/18 at 11:09; Stop 03/25/18 at 12:08 ; Status DC Piperacillin Sod/ Tazobactam Sod 50 ml @ 100 mls/hr ONCE ONCE IV Last administered on 03/25/18at 11:28; Start 03/25/18 at 11:15; Stop 03/25/18 at 11:44 ; Status DC Acetaminophen (Tylenol) 1,000 mg ONCE ONCE PO Last administered on 03/25/18at 11:28; Start 03/25/18 at 11:15; Stop 03/25/18 at 11:16; Status DC Sodium Chloride 1,000 ml @ 999 mls/hr BOLUS ONCE IV Last administered on 03/25at 11:28; Start 03/25/18 at 11:15; Stop 03/25/18 at 12:15; Status DC Potassium Chloride (KCl) 20 meq ONCE ONCE PO Last administered on 03/25/18at 13 :57; Start 03/25/18 at 13:15; Stop 03/25/18 at 13:16; Status DC Acetaminophen (Tylenol) 650 mg Q4H PRN PO FEVER/ PAIN 1-5 Last administered on 03/25/18at 20:31; Start 03/25/18 at 14:30 Atenolol (Tenormin) 12.5 mg BID PO Last administered on 03/26/18at 09:51; Start 03/25/18 at 21:00 Atorvastatin Calcium (Lipitor) 40 mg HS PO Last administered on 03/25/18at 20:32 ; Start 03/25/18 at 21:00 Lisinopril (Prinivil) 10 mg DAILY PO Last administered on 03/26/18at 09:52; Start 03/26/18 at 09:00 Pharmacy Profile Note 0 ml @ 0 mls/hr UNSCH OTHER ; Start 03/25/18 at 14:45 Piperacillin Sod/ Tazobactam Sod 50 ml @ 100 mls/hr Q6H IV Last administered on 03/26/18at 05:51; Start 03/25/18 at 18:00 Miscellaneous (Pill Splitter) 1 ea UNSCH PRN OTHER SEE LABEL COMMENTS; Start at 15:30 Acetaminophen/ Hydrocodone Bitart ([place] 5-325 Mg) 1 tab Q6H PRN PO PAIN 6-10 Last administered on 03/26/18at 10:05; Start 03/25/18 at 15:30 Nicotine (Habitrol 21 Mg Patch.24 Hr) 1 patch DAILY T-DERMAL Last administered on 03/26/18at 09:56; Start 03/25/18 at 15:30 Miscellaneous Information 1 DAILY T-DERMAL Last administered on 03/26/18at 09:00 ; Start 03/26/18 at 09:00 Flumazenil (Romazicon Inj) 0.2 mg Q1M PRN IV PUSH SEE LABEL COMMENTS; Start at 15:30 Lorazepam (Ativan) 1 mg Q4H PRN PO CIWA 8 - 10 Last administered on 03/26/18at 02:09; Start 03/25/18 at 15:30 Lorazepam (Ativan Inj) 1 mg Q4H PRN IV PUSH CIWA 8 - 10; Start 03/25/18 at 15: 30 Lorazepam (Ativan) 2 mg Q2H PRN PO CIWA 11-14; Start 03/25/18 at 15:30 Lorazepam (Ativan Inj) 2 mg Q2H PRN IV PUSH CIWA 11-14; Start 03/25/18 at 15:30 Lorazepam (Ativan Inj) 2 mg Q1H PRN IV PUSH CIWA 15-20; Start 03/25/18 at 15:30 Lorazepam (Ativan Inj) 2 mg Q15M PRN IV PUSH CIWA > 20; Start 03/25/18 at 15:30 Multivitamins (Theragran) 1 tab DAILY PO Last administered on 03/26/18at 09:52; Start 03/26/18 at 09:00 Magnesium Oxide (Mag-Ox) 400 mg Q12HR PO Last administered on 03/26/18at 09:51; Start 03/25/18 at 15:30 Vancomycin HCl 1000 mg/Sodium Chloride 250 ml @ 250 mls/hr Q12H IV Last administered on 03/26/18at 01:50; Start 03/26/18 at 00:00 Miscellaneous Information ([facility] [place] [facility] Ordered Lab Info) SPECIFIC LAB TO BE ... ONCE ONCE .XX ; Start 03/27/18 at 11:45; Stop 03/27/18 at 11:46 Aspirin (Aspirin Chew) 81 mg DAILY CHEW Last administered on 03/26/18at 09:51; Start 03/26/18 at 09:00 Enoxaparin Sodium (Lovenox Inj) 40 mg Q24H SQ Last administered on 03/26/18at 09 :51; Start 03/26/18 at 09:00 Nystatin (Mycostatin Liq) 5 ml QID SWISH-SWAL Last administered on 03/26/18at 09:52; Start 03/25/18 at 18:00 A/P Problem List: (1) Cellulitis ICD Code: L03.90 - Cellulitis, unspecified Status: Acute (2) Hypokalemia ICD Code: E87.6 - Hypokalemia Status: Acute (3) Hypertension ICD Code: I10 - Essential (primary) hypertension (4) Tobacco abuse ICD Code: Z72.0 - Tobacco use (5) Alcohol abuse ICD Code: F10.10 - Alcohol abuse, uncomplicated (6) Homeless ICD Code: Z59.0 - Homelessness (7) Hypomagnesemia ICD Code: E83.42 - Hypomagnesemia Assessment and Plan - sepsis due to cellulitis of the left leg continue with broad spectrum IV antibiotics- leg elevation- continue with pain control- will follow the cultures and consult ID. -CAD/ hypertension/ dyslipidemia; resume home meds. ( patient says that he stopped taking his medications while ago). -chronic smoker/ alcohol abuse; start on nicotine patch and CIWA protocol. -hypokalemia/hypomagnesemia; will replace and monitor. -consult case management since the patient is homeless. -DVT prophylaxis; subq Lovenox Conjunctivitis Needs hypokalemia REplaced HYPOMAGNESIA WILL REPLACE BY IV AM LABS A.m. labs case management due to being homeless Antibiotics per infectious disease Discharge Planning Case management for help with discharge Patient is currently homeless Problem Qualifiers (1) Cellulitis: Qualified Codes: L03.119 - Cellulitis of unspecified part of limb Edwar Topete DO Mar 26, 2018 10:40
[2018-03-26] MEDS: MAGNESIUM SULFAT 1 GM PREMIX 100 ML x4 bags IV SCH ×4 (15:02→18:14)
--- NOTE | 2018-03-26 18:45 | EKG ---
Date Performed: 03/25/2018 Time Performed: 12:35:40 PTAGE: 43 years EKG: SINUS TACHYCARDIA NONSPECIFIC ST & T-WAVE ABNORMALITY ABNORMAL RHYTHM ECG Since the PREVIOUS TRACING , no significant change noted PREVIOUS TRACIN12/22/2017 17.07 DOCTOR: Stephanie Floyd Interpretating Date/Time 03/26/2018 18:43:40
[2018-03-26] MEDS: cloNIDine HCL 0.1 MG TAB PO PRN (19:16)
[2018-03-26] MEDS: ATORVASTATIN 40 MG TAB PO SCH (20:27)
[2018-03-27] VITALS (8 sets, daily range): BP systolic 107–157; BP diastolic 78–106; PULSE 69–89; RESP 17–18; TEMP 97.5–99.3; O2SAT 97–99
[2018-03-27] MEDS: ACETAMINOPHEN/HYDROcodone 325 MG/5 MG TAB PO PRN ×2 (00:01→09:23)
[2018-03-27] MEDS: PIPERACIL-TAZO 3.375 GM PREMIX 50 ML IV SCH ×4 (00:01→17:54)
[2018-03-27] MEDS: VANCOMYCIN 1,000 MG/NS 250 ML IV SCH ×4 (00:05→12:00)
[2018-03-27] MEDS: cloNIDine HCL 0.1 MG TAB PO PRN (05:40)
[2018-03-27 07:54] LABS: AUTOMATED NEUTROPHIL # 3.1 TH/MM3 (1.8-7.7); BASOPHIL # 0.1 TH/MM3 (0-0.2); BASOPHIL % 1.3 % (0.0-2.0); EOSINOPHIL # 0.1 TH/MM3 (0-0.4); EOSINOPHIL % 1.9 % (0.0-4.0); HEMATOCRIT 42.2 % (39.0-51.0); HEMOGLOBIN 14.4 GM/DL (13.0-17.0); LYMPH % 19.4 % (9.0-44.0); LYMPHOCYTE # 0.9 TH/MM3 (1.0-4.8); MEAN CELL VOLUME 93.8 FL (80.0-100.0); MEAN CORPUSCULAR HGB CONC 34.1 % (32.0-36.0); MEAN PLATELET VOLUME 8.5 FL (7.0-11.0); MONO % 10.4 % (0.0-8.0); MONOCYTE # 0.5 TH/MM3 (0-0.9); PLATELET COUNT 194 TH/MM3 (150-450); RED CELL DISTRIBUTION WIDTH 14.6 % (11.6-17.2); WHITE BLOOD COUNT 4.6 TH/MM3 (4.0-11.0)
[2018-03-27 08:38] LABS: ALBUMIN 2.6 GM/DL (3.4-5.0); ALKALINE PHOSPHATASE 99 U/L (45-117); ALT (GPT) 224 U/L (12-78); AST (GOT) 338 U/L (15-37); BICARBONATE 29.1 MEQ/L (21.0-32.0); BLOOD UREA NITROGEN 7 MG/DL (7-18); CALCIUM 8.6 MG/DL (8.5-10.1); CHLORIDE 97 MEQ/L (98-107); CREATININE 0.66 MG/DL (0.60-1.30); GLOMERULAR FILTRATION RATE 131 ML/MIN (>89); GLUCOSE,RANDOM 81 MG/DL (74-106); MAGNESIUM 1.8 MG/DL (1.5-2.5); PHOSPHORUS 3.6 MG/DL (2.5-4.9); SODIUM (NA) 135 MEQ/L (136-145); TOTAL BILIRUBIN ADULT 0.6 MG/DL (0.2-1.0); TOTAL PROTEIN 7.7 GM/DL (6.4-8.2)
[2018-03-27] MEDS: THIAMINE HCL 100 MG TAB PO SCH (09:21)
[2018-03-27] MEDS: NYSTATIN SUSP 500,000 U/5 ML CUP SWISH-SWAL SCH ×4 (09:21→21:14)
[2018-03-27] MEDS: ATENOLOL 25 MG TAB PO SCH ×2 (09:21→21:14)
[2018-03-27] MEDS: MAGNESIUM OXIDE 400 MG TAB PO SCH ×2 (09:22→21:15)
[2018-03-27] MEDS: LISINOPRIL 10 MG TAB PO SCH (09:22)
[2018-03-27] MEDS: MULTIVITAMIN TAB PO SCH (09:22)
[2018-03-27] MEDS: FOLIC ACID 1 MG TAB PO SCH (09:22)
[2018-03-27] MEDS: ASPIRIN 81 MG CHEW TAB CHEW SCH (09:22)
[2018-03-27] MEDS: NICOTINE 21 MG/24 HR PATCH T-DERMAL SCH (09:24)
[2018-03-27] MEDS: ENOXAPARIN SODIUM 40 MG/0.4 ML SYRINGE SQ SCH (09:24)
[2018-03-27] MEDS: REMOVE OLD PATCH T-DERMAL SCH (09:24)
--- NOTE | 2018-03-27 11:19 | HHI.PR ---
Subjective Remarks patient is a 43 y/o male, homeless, with history of CAD, dyslipidemia and hypertension, who presented to ER with redness and pain to the left leg. he says that he noticed a couple of wounds on his left leg two weeks ago which gradually got worse. he says that he 'keeps having wounds on his legs'. he's not sure if he had any fever. pain to the left leg is moderate. he doesn't recall any insect bites but he says that he fell on his left knee two weeks ago.he says that he stopped taking his medications while ago. 03-26 PATIENT HAS MULTIPLE WOUNDS ON HIS BODY IS HOMELESS AND STATES [place] RN AND PT SEEN BY ID ON ZOSYN AND VANCO REPLACE POTASSIUM AND MAGNESIUM AM LABS 03-27 HAS MULTIPLE WOUNDS IN VARIOUS STAGES OF HEALING ALL OVER HIS BODY DW RN AND PT ON ZOSYN AND VANCO WANTS TO SHOWER Objective Vitals Vital Signs Date Time Temp Pulse Resp B/P (MAP) Pulse Ox O2 Delivery O2 Flow Rate FiO2 03/27/18 08:25 69 03/27/18 08:00 99.3 81 18 144/106 (119) 97 03/27/18 04:00 97.5 73 18 155/102 (119) 99 03/27/18 04:00 Room Air 03/27/18 00:00 Room Air 03/27/18 00:00 99.1 83 17 157/104 (121) 97 03/26/18 20:00 Room Air 03/26/18 20:00 98.2 94 18 142/106 (118) 96 03/26/18 16:00 83 03/26/18 16:00 99.2 92 20 144/95 (111) 96 03/26/18 12:00 89 03/26/18 12:00 99.2 91 20 152/102 (119) 95 I/O 03/26/18 03/26/18 03/26/18 03/27/18 03/27/18 03/27/18 07:00 15:00 23:00 07:00 15:00 23:00 Intake Total 350 ml 700 ml 966 ml Output Total 225 ml 120 ml Balance 350 ml 475 ml 846 ml Intake Oral 600 ml 666 ml IV Total 350 ml 100 ml 300 ml Output Urine Total 225 ml 120 ml # Voids 2 # Bowel Movements 2 0 Result Diagram: 03/27/18 0632 03/27/18 0632 Other Results Laboratory Tests Test 03/25/18 11:15 03/25/18 11:41 03/26/18 05:24 03/27/18 06:32 White Blood Count 9.1 TH/MM3 4.6 TH/MM3 Red Blood Count 4.28 MIL/MM3 4.50 MIL/MM3 Hemoglobin 13.6 GM/DL 14.4 GM/DL Hematocrit 40.0 % 42.2 % Mean Corpuscular Volume 93.4 FL 93.8 FL Mean Corpuscular Hemoglobin 31.7 PG 32.0 PG Mean Corpuscular Hemoglobin Concent 34.0 % 34.1 % Red Cell Distribution Width 14.6 % 14.6 % Platelet Count 169 TH/MM3 194 TH/MM3 Mean Platelet Volume 8.1 FL 8.5 FL Neutrophils (%) (Auto) 78.7 % 67.0 % Lymphocytes (%) (Auto) 9.9 % 19.4 % Monocytes (%) (Auto) 10.8 % 10.4 % Eosinophils (%) (Auto) 0.1 % 1.9 % Basophils (%) (Auto) 0.5 % 1.3 % Neutrophils # (Auto) 7.2 TH/MM3 3.1 TH/MM3 Lymphocytes # (Auto) 0.9 TH/MM3 0.9 TH/MM3 Monocytes # (Auto) 1.0 TH/MM3 0.5 TH/MM3 Eosinophils # (Auto) 0.0 TH/MM3 0.1 TH/MM3 Basophils # (Auto) 0.0 TH/MM3 0.1 TH/MM3 CBC Comment DIFF FINAL DIFF FINAL Differential Comment Prothrombin Time 10.8 SEC Prothromb Time International Ratio 1.1 RATIO Activated Partial Thromboplast Time 30.1 SEC Blood Urea Nitrogen 9 MG/DL 9 MG/DL 7 MG/DL Creatinine 0.72 MG/DL 0.51 MG/DL 0.66 MG/DL Random Glucose 87 MG/DL 86 MG/DL 81 MG/DL Total Protein 8.1 GM/DL 7.7 GM/DL Albumin 2.9 GM/DL 2.6 GM/DL Calcium Level 8.1 MG/DL 8.5 MG/DL 8.6 MG/DL Magnesium Level 1.3 MG/DL 1.3 MG/DL 1.8 MG/DL Alkaline Phosphatase 97 U/L 99 U/L Aspartate Amino Transf (AST/SGOT) 42 U/L 338 U/L Alanine Aminotransferase (ALT/SGPT) 34 U/L 224 U/L Total Bilirubin 0.7 MG/DL 0.6 MG/DL Sodium Level 136 MEQ/L 132 MEQ/L 135 MEQ/L Potassium Level 3.3 MEQ/L 3.4 MEQ/L 3.8 MEQ/L Chloride Level 98 MEQ/L 95 MEQ/L 97 MEQ/L Carbon Dioxide Level 25.9 MEQ/L 26.3 MEQ/L 29.1 MEQ/L Anion Gap 12 MEQ/L 11 MEQ/L 9 MEQ/L Estimat Glomerular Filtration Rate 118 ML/MIN 176 ML/MIN 131 ML/MIN Lactic Acid Level 1.4 mmol/L Total Creatine Kinase 161 U/L Creatine Kinase MB 1.3 NG/ML Troponin I LESS THAN 0.02 NG/ML C-Reactive Protein 11.00 MG/DL B-Type Natriuretic Peptide 49 PG/ML Urine Color Mara Urine Turbidity CLEAR Urine pH 6.0 Urine Specific [place] 1.026 Urine Protein 100 mg/dL Urine Glucose (UA) NEG mg/dL Urine Ketones TRACE mg/dL Urine Occult Blood SMALL Urine Nitrite NEG Urine Bilirubin NEG Urine Urobilinogen 4.0 OR GREATER mg/dL Urine Leukocyte Esterase NEG Urine RBC 3 /hpf Urine WBC 3 /hpf Urine Squamous Epithelial Cells <1 /hpf Urine Hyaline Casts 3 /lpf Microscopic Urinalysis Comment CATH-CULT NOT IND Urine Opiates Screen NEG Urine Barbiturates Screen NEG Urine Amphetamines Screen NEG Urine Benzodiazepines Screen NEG Urine Cocaine Screen NEG Urine Cannabinoids Screen POS Phosphorus Level 3.6 MG/DL Free Thyroxine 1.20 NG/DL Thyroid Stimulating Hormone 3rd Gen 4.150 uIU/ML Imaging Last Impressions Tibia/Fibula X-Ray 03/25/18 1133 Signed Impressions: CONCLUSION: 1. Intact well-positioned lateral malleolus fixation hardware. 2. No acute fracture or dislocation. Knee X-Ray 03/25/18 113 Signed Impressions: CONCLUSION: 1. No acute fracture or dislocation. Chest X-Ray 03/25/18 1109 Signed Impressions: CONCLUSION: No acute cardiopulmonary findings are identified. Objective Remarks GENERAL: Awake alert and oriented 3 talkative and cooperative SKIN: Warm and dry. Multiple wounds on upper extremities lower extremities throughout his body-LEFT LOWER EXTREMITY ERYTHEMA STILL HEAD: Atraumatic. Normocephalic. EYES: Pupils equal and round. No scleral icterus. No injection or drainage. Crusting in bilateral eyes possible conjunctivitis ENT: No nasal bleeding or discharge. Mucous membranes pink and moist. Tongue is midline NECK: Trachea midline. No JVD. Supple CARDIOVASCULAR: Regular rate and rhythm. S1-S2 no S3 or S4 RESPIRATORY: No accessory muscle use. Clear to auscultation. Breath sounds equal bilaterally. GASTROINTESTINAL: Abdomen soft, non-tender, nondistended. Hepatic and splenic margins not palpable. MUSCULOSKELETAL: Extremities without clubbing, cyanosis, or edema. No obvious deformities. NEUROLOGICAL: Awake and alert. No obvious cranial nerve deficits. Motor grossly within normal limits. Five out of 5 muscle strength in the arms and legs. Normal speech. PSYCHIATRIC: Appropriate mood and affect; insight and judgment normal. Medications and IVs Current Medications Vancomycin HCl 1000 mg/Sodium Chloride 250 ml @ 250 mls/hr ONCE STAT IV Last administered on 03/25/18at 12:29; Start 03/25/18 at 11:09; Stop 03/25/18 at 12:08 ; Status DC Piperacillin Sod/ Tazobactam Sod 50 ml @ 100 mls/hr ONCE ONCE IV Last administered on 03/25/18at 11:28; Start 03/25/18 at 11:15; Stop 03/25/18 at 11:44 ; Status DC Acetaminophen (Tylenol) 1,000 mg ONCE ONCE PO Last administered on 03/25/18at 11:28; Start 03/25/18 at 11:15; Stop 03/25/18 at 11:16; Status DC Sodium Chloride 1,000 ml @ 999 mls/hr BOLUS ONCE IV Last administered on 03/25at 11:28; Start 03/25/18 at 11:15; Stop 03/25/18 at 12:15; Status DC Potassium Chloride (KCl) 20 meq ONCE ONCE PO Last administered on 03/25/18at 13 :57; Start 03/25/18 at 13:15; Stop 03/25/18 at 13:16; Status DC Acetaminophen (Tylenol) 650 mg Q4H PRN PO FEVER/ PAIN 1-5 Last administered on 03/25/18at 20:31; Start 03/25/18 at 14:30 Atenolol (Tenormin) 12.5 mg BID PO Last administered on 03/27/18 09:21; Start 03/25/18 at 21:00 Atorvastatin Calcium (Lipitor) 40 mg HS PO Last administered on 03/26/18at 20:27 ; Start 03/25/18 at 21:00 Lisinopril (Prinivil) 10 mg DAILY PO Last administered on 03/27/18 09:22; Start 03/26/18 at 09:00 Pharmacy Profile Note 0 ml @ 0 mls/hr UNSCH OTHER ; Start 03/25/18 at 14:45 Piperacillin Sod/ Tazobactam Sod 50 ml @ 100 mls/hr Q6H IV Last administered on 03/27/18at 05:41; Start 03/25/18 at 18:00 Miscellaneous (Pill Splitter) 1 ea UNSCH PRN OTHER SEE LABEL COMMENTS; Start at 15:30 Acetaminophen/ Hydrocodone Bitart ([place] 5-325 Mg) 1 tab Q6H PRN PO PAIN 6-10 Last administered on 03/27/18 09:23; Start 03/25/18 at 15:30 Nicotine (Habitrol 21 Mg Patch.24 Hr) 1 patch DAILY T-DERMAL Last administered on 03/27/18 09:24; Start 03/25/18 at 15:30 Miscellaneous Information 1 DAILY T-DERMAL Last administered on 03/27/18 09:24 ; Start 03/26/18 at 09:00 Flumazenil (Romazicon Inj) 0.2 mg Q1M PRN IV PUSH SEE LABEL COMMENTS; Start at 15:30 Lorazepam (Ativan) 1 mg Q4H PRN PO CIWA 8 - 10 Last administered on 03/26/18at 02:09; Start 03/25/18 at 15:30 Lorazepam (Ativan Inj) 1 mg Q4H PRN IV PUSH CIWA 8 - 10; Start 03/25/18 at 15: 30 Lorazepam (Ativan) 2 mg Q2H PRN PO CIWA 11-14; Start 03/25/18 at 15:30 Lorazepam (Ativan Inj) 2 mg Q2H PRN IV PUSH CIWA 11-14; Start 03/25/18 at 15:30 Lorazepam (Ativan Inj) 2 mg Q1H PRN IV PUSH CIWA 15-20; Start 03/25/18 at 15:30 Lorazepam (Ativan Inj) 2 mg Q15M PRN IV PUSH CIWA > 20; Start 03/25/18 at 15:30 Multivitamins (Theragran) 1 tab DAILY PO Last administered on 03/27/18at 09:22; Start 03/26/18 at 09:00 Magnesium Oxide (Mag-Ox) 400 mg Q12HR PO Last administered on 03/27/18at 09:22; Start 03/25/18 at 15:30 Vancomycin HCl 1000 mg/Sodium Chloride 250 ml @ 250 mls/hr Q12H IV Last administered on 03/27/18at 00:05; Start 03/26/18 at 00:00 Miscellaneous Information ([facility] [place] [facility] Ordered Lab Info) SPECIFIC LAB TO BE ... ONCE ONCE .XX ; Start 03/27/18 at 11:45; Stop 03/27/18 at 11:46 Aspirin (Aspirin Chew) 81 mg DAILY CHEW Last administered on 03/27/18at 09:22; Start 03/26/18 at 09:00 Enoxaparin Sodium (Lovenox Inj) 40 mg Q24H SQ Last administered on 03/27/18at 09 :24; Start 03/26/18 at 09:00 Nystatin (Mycostatin Liq) 5 ml QID SWISH-SWAL Last administered on 03/27/18at 09:21; Start 03/25/18 at 18:00 Magnesium Sulfate 100 ml @ 300 mls/hr BOLUS ONCE IV ; Start 03/26/18 at 10:30 ; Stop 03/26/18 at 10:49; Status Cancel Potassium Chloride (KCl) 40 meq ONCE ONCE PO Last administered on 03/26/18at 12 :18; Start 03/26/18 at 10:30; Stop 03/26/18 at 11:26; Status DC Potassium Chloride (KCl) 40 meq ONCE ONCE PO Last administered on 03/26/18at 14 :29; Start 03/26/18 at 14:30; Stop 03/26/18 at 14:31; Status DC Clonidine (Catapres) 0.1 mg Q4H PRN PO SBP>160, DBP>90 Last administered on at 05:40; Start 03/26/18 at 10:30 Thiamine HCl (Vitamin B1) 100 mg ONCE ONCE PO Last administered on 03/26/18at 12:17; Start 03/26/18 at 10:30; Stop 03/26/18 at 11:26; Status DC Thiamine HCl (Vitamin B1) 100 mg DAILY PO Last administered on 03/27/18at 09:21 ; Start 03/27/18 at 09:00 Folic Acid (Folate) 1 mg ONCE ONCE PO Last administered on 03/26/18at 12:18; Start 03/26/18 at 10:30; Stop 03/26/18 at 11:26; Status DC Folic Acid (Folate) 1 mg DAILY PO Last administered on 03/27/18at 09:22; Start 03/27/18 at 09:00 Artificial Tears (Tears Naturale Opth Soln) 1 drop Q4H PRN EACH EYE DRY EYES; Start 03/26/18 at 10:30 Magnesium Sulfate/ Dextrose 100 ml @ 100 mls/hr Q1H IV Last administered on at 18:14; Start 03/26/18 at 14:15; Stop 03/26/18 at 18:14; Status DC A/P Problem List: (1) Cellulitis ICD Code: L03.90 - Cellulitis, unspecified Status: Acute (2) Hypokalemia ICD Code: E87.6 - Hypokalemia Status: Acute (3) Hypertension ICD Code: I10 - Essential (primary) hypertension (4) Tobacco abuse ICD Code: Z72.0 - Tobacco use (5) Alcohol abuse ICD Code: F10.10 - Alcohol abuse, uncomplicated (6) Homeless ICD Code: Z59.0 - Homelessness (7) Hypomagnesemia ICD Code: E83.42 - Hypomagnesemia Assessment and Plan - sepsis due to cellulitis of the left leg- MULTIPLE WOUNDS ON UE AND LE BILATERALLY continue with broad spectrum IV antibiotics- leg elevation- continue with pain control- will follow the cultures and consult ID. -CAD/ hypertension/ dyslipidemia; resume home meds. ( patient says that he stopped taking his medications while ago). -chronic smoker/ alcohol abuse; start on nicotine patch and CIWA protocol. -hypokalemia/hypomagnesemia; will replace and monitor. -consult case management since the patient is homeless. -DVT prophylaxis; subq Lovenox Conjunctivitis Needs hypokalemia REplaced HYPOMAGNESIA WILL REPLACE BY IV AM LABS A.m. labs case management due to being homeless Antibiotics per infectious disease Discharge Planning Case management for help with discharge Patient is currently homeless Problem Qualifiers (1) Cellulitis: Qualified Codes: L03.119 - Cellulitis of unspecified part of limb Edwar Topete DO Mar 27, 2018 11:19
[2018-03-27] MEDS ORDERED: PHARMACY ORDERED LAB ONE (11:45)
[2018-03-27] MEDS: VANCOMYCIN INJ 1,750 MG in SODIUM CHLORID 0.9% 500 ML INJ 500 ML IV SCH (16:00)
--- NOTE | 2018-03-27 17:56 | HHI.IDPN ---
Note Infectious Disease Note Vital Signs Date Time Temp Pulse Resp B/P (MAP) Pulse Ox O2 Delivery O2 Flow Rate FiO2 03/27/18 12:00 98.0 89 18 107/78 (88) 97 03/27/18 08:25 69 03/27/18 08:00 99.3 81 18 144/106 (119) 97 03/27/18 04:00 97.5 73 18 155/102 (119) 99 03/27/18 04:00 Room Air 03/27/18 00:00 Room Air 03/27/18 00:00 99.1 83 17 157/104 (121) 97 03/26/18 20:00 Room Air 03/26/18 20:00 98.2 94 18 142/106 (118) 96 Laboratory Tests Test 03/27/18 06:32 03/27/18 12:56 White Blood Count 4.6 TH/MM3 Red Blood Count 4.50 MIL/MM3 Hemoglobin 14.4 GM/DL Hematocrit 42.2 % Mean Corpuscular Volume 93.8 FL Mean Corpuscular Hemoglobin 32.0 PG Mean Corpuscular Hemoglobin Concent 34.1 % Red Cell Distribution Width 14.6 % Platelet Count 194 TH/MM3 Mean Platelet Volume 8.5 FL Neutrophils (%) (Auto) 67.0 % Lymphocytes (%) (Auto) 19.4 % Monocytes (%) (Auto) 10.4 % Eosinophils (%) (Auto) 1.9 % Basophils (%) (Auto) 1.3 % Neutrophils # (Auto) 3.1 TH/MM3 Lymphocytes # (Auto) 0.9 TH/MM3 Monocytes # (Auto) 0.5 TH/MM3 Eosinophils # (Auto) 0.1 TH/MM3 Basophils # (Auto) 0.1 TH/MM3 CBC Comment DIFF FINAL Differential Comment Blood Urea Nitrogen 7 MG/DL Creatinine 0.66 MG/DL Random Glucose 81 MG/DL Total Protein 7.7 GM/DL Albumin 2.6 GM/DL Calcium Level 8.6 MG/DL Phosphorus Level 3.6 MG/DL Magnesium Level 1.8 MG/DL Alkaline Phosphatase 99 U/L Aspartate Amino Transf (AST/SGOT) 338 U/L Alanine Aminotransferase (ALT/SGPT) 224 U/L Total Bilirubin 0.6 MG/DL Sodium Level 135 MEQ/L Potassium Level 3.8 MEQ/L Chloride Level 97 MEQ/L Carbon Dioxide Level 29.1 MEQ/L Anion Gap 9 MEQ/L Estimat Glomerular Filtration Rate 131 ML/MIN Free Thyroxine 1.20 NG/DL Thyroid Stimulating Hormone 3rd Gen 4.150 uIU/ML Vancomycin Level Trough 1.7 MCG/ML Patient reports drainage coming from his legs wounds. Has drainage from the anterior left tibia. Multiple skin lesions. Afebrile. Culture has staph aureus and group A strep. Admitted with fever and multiple skin lesions. PAST MEDICAL HISTORY: Hypertension and dyslipidemia. PAST SURGICAL HISTORY: History of cardiac stent and history of surgery on the foot. ALLERGIES: NO KNOWN DRUG ALLERGIES. ANTIBIOTICS: 1. Vancomycin. 2. Piperacillin-tazobactam. SOCIAL HISTORY: Positive tobacco use, half a pack a day. Positive alcohol use. Denies IV drug use. The patient notes that he was recently and moved from [place], [place] to [place] to try to get his life going again. He was born in [place]. PHYSICAL EXAMINATION: GENERAL: Well-developed male who is in no acute distress. He looks chronically ill. HEENT: Head is atraumatic. PRLA. Oropharynx mucosa is moist. Positive thrush on the tongue. NECK: Supple without adenopathy. LUNGS: Clear breath sounds. HEART: Regular S1, S2, without murmurs, rubs or gallops. ABDOMEN: Bowel sounds present. Soft, nontender. EXTREMITIES: The left leg is erythematous and there are a few erythematous lesions including a long lesion which has raised edges and pale white creamy edges. The other lesions also had some pale creamy raised edges. There are lesions of the tibia, thigh, right groin and also left leg. SKIN: Diffuse erythematous hue of the chest, face, neck and arms. Skin warm and moist. No diffuse rash appreciated. NEUROLOGIC: No gross focal finding. PSYCHIATRIC: Patient is calm and cooperative. IMPRESSION: 1. Cellulitis involving the left leg. The patient has multiple skin lesions suggesting superficial skin abscesses. MSSA and Group A strep. 2. Oral thrush. 3. Possible sepsis. The patient presented with elevated temperature and heart rate. However, lactic acid level is normal. RECOMMENDATIONS: 1. Stop vancomycin. 2. Stop piperacillin-tazobactam. 3. Ancef IV over next couple of days. 4. Follow clinical status. Wilson Hyatt MD Mar 27, 2018 17:56
[2018-03-27] MEDS: ATORVASTATIN 40 MG TAB PO SCH (21:15)
[2018-03-28] VITALS (8 sets, daily range): BP systolic 140–164; BP diastolic 92–106; PULSE 63–77; RESP 16–18; TEMP 97.8–98.5; O2SAT 95–98
[2018-03-28] MEDS: PIPERACIL-TAZO 3.375 GM PREMIX 50 ML IV SCH ×2 (05:52)
[2018-03-28] MEDS: ACETAMINOPHEN/HYDROcodone 325 MG/5 MG TAB PO PRN ×4 (05:58→21:26)
[2018-03-28 08:26] LABS: AUTOMATED NEUTROPHIL # 2.6 TH/MM3 (1.8-7.7); EOSINOPHIL # 0.1 TH/MM3 (0-0.4); EOSINOPHIL % 2.6 % (0.0-4.0); HEMATOCRIT 41.6 % (39.0-51.0); HEMOGLOBIN 14.2 GM/DL (13.0-17.0); LYMPH % 21.9 % (9.0-44.0); MEAN CELL VOLUME 94.1 FL (80.0-100.0); MEAN CORPUSCULAR HEMOGLOBIN 32.1 PG (27.0-34.0); MEAN CORPUSCULAR HGB CONC 34.2 % (32.0-36.0); MEAN PLATELET VOLUME 8.6 FL (7.0-11.0); MONO % 14.3 % (0.0-8.0); MONOCYTE # 0.6 TH/MM3 (0-0.9); NEUT % 60.2 % (16.0-70.0); PLATELET COUNT 214 TH/MM3 (150-450); RED BLOOD COUNT 4.42 MIL/MM3 (4.50-5.90); RED CELL DISTRIBUTION WIDTH 14.6 % (11.6-17.2); WHITE BLOOD COUNT 4.4 TH/MM3 (4.0-11.0)
[2018-03-28 08:51] LABS: ALBUMIN 2.7 GM/DL (3.4-5.0); AST (GOT) 161 U/L (15-37); BICARBONATE 30.4 MEQ/L (21.0-32.0); BLOOD UREA NITROGEN 8 MG/DL (7-18); CALCIUM 9.2 MG/DL (8.5-10.1); CHLORIDE 100 MEQ/L (98-107); GLOMERULAR FILTRATION RATE 122 ML/MIN (>89); GLUCOSE,RANDOM 85 MG/DL (74-106); MAGNESIUM 1.6 MG/DL (1.5-2.5); SODIUM (NA) 137 MEQ/L (136-145)
[2018-03-28 09:15] LABS: ALKALINE PHOSPHATASE 96 U/L (45-117); ALT (GPT) 179 U/L (12-78); PHOSPHORUS 4.7 MG/DL (2.5-4.9); TOTAL BILIRUBIN ADULT 0.6 MG/DL (0.2-1.0); TOTAL PROTEIN 7.7 GM/DL (6.4-8.2)
[2018-03-28] MEDS: VANCOMYCIN INJ 1,750 MG in SODIUM CHLORID 0.9% 500 ML INJ 500 ML IV SCH ×3 (09:43)
[2018-03-28] MEDS: FOLIC ACID 1 MG TAB PO SCH (09:43)
[2018-03-28] MEDS: ENOXAPARIN SODIUM 40 MG/0.4 ML SYRINGE SQ SCH (09:43)
[2018-03-28] MEDS: ASPIRIN 81 MG CHEW TAB CHEW SCH (09:43)
[2018-03-28] MEDS: LISINOPRIL 10 MG TAB PO SCH (09:43)
[2018-03-28] MEDS: NYSTATIN SUSP 500,000 U/5 ML CUP SWISH-SWAL SCH ×4 (09:44→21:26)
[2018-03-28] MEDS: ATENOLOL 25 MG TAB PO SCH ×2 (09:44→21:25)
[2018-03-28] MEDS: MULTIVITAMIN TAB PO SCH (09:44)
[2018-03-28] MEDS: MAGNESIUM OXIDE 400 MG TAB PO SCH ×2 (09:44→21:25)
[2018-03-28] MEDS: THIAMINE HCL 100 MG TAB PO SCH (09:44)
[2018-03-28] MEDS: REMOVE OLD PATCH T-DERMAL SCH (09:46)
[2018-03-28] MEDS: NICOTINE 21 MG/24 HR PATCH T-DERMAL SCH (09:46)
--- NOTE | 2018-03-28 10:06 | HHI.PR ---
Subjective Remarks Patient seen and examined this morning, their vitals are stable and the patient is afebrile. Reports that his wounds seem to be draining every time he gets up. Denies CP and SOB. Ambulatory to rest room. Objective Vital Signs Date Time Temp Pulse Resp B/P (MAP) Pulse Ox O2 Delivery O2 Flow Rate FiO2 03/28/18 08:31 97.8 63 17 140/96 (111) 98 03/28/18 04:00 97.8 63 17 164/99 (120) 98 03/28/18 04:00 Room Air 03/28/18 00:00 98.2 75 18 163/106 (125) 98 03/28/18 00:00 72 03/28/18 00:00 Room Air 03/27/18 20:00 Room Air 03/27/18 20:00 98.0 79 18 144/93 (110) 98 03/27/18 20:00 77 03/27/18 16:24 75 03/27/18 12:10 73 03/27/18 12:00 98.0 89 18 107/78 (88) 97 I/O 03/27/18 03/27/18 03/27/18 03/28/18 03/28/18 03/28/18 06:59 14:59 22:59 06:59 14:59 22:59 Intake Total 966 ml 687.5 ml Output Total 120 ml 350 ml Balance 846 ml 337.5 ml Intake Oral 666 ml 120 ml IV Total 300 ml 567.5 ml Output Urine Total 120 ml 350 ml # Voids 2 2 # Bowel Movements 0 0 Result Diagram: 03/28/18 0748 03/28/18 0748 Imaging Last Impressions Tibia/Fibula X-Ray 03/25/18 1133 Signed Impressions: CONCLUSION: 1. Intact well-positioned lateral malleolus fixation hardware. 2. No acute fracture or dislocation. Knee X-Ray 03/25/18 1133 Signed Impressions: CONCLUSION: 1. No acute fracture or dislocation. Chest X-Ray 03/25/18 1109 Signed Impressions: CONCLUSION: No acute cardiopulmonary findings are identified. Objective Remarks GENERAL: Well-appearing, no acute distress SKIN: Warm and dry. Multiple scabs in various stages of healing on upper and lower extremities. Left lower extremity with 2 large lesions (on nixon) and surrounding erythema. HEAD: Normocephalic. EYES: No scleral icterus. No injection or drainage. NECK: Supple, trachea midline. No JVD or lymphadenopathy. CARDIOVASCULAR: Regular rate and rhythm without murmurs, gallops, or rubs. Distal pulses palpable RESPIRATORY: Breath sounds equal bilaterally. No accessory muscle use. GASTROINTESTINAL: Abdomen soft, non-tender, nondistended. MUSCULOSKELETAL: No cyanosis, or edema. A/P Problem List: (1) Cellulitis ICD Code: L03.90 - Cellulitis, unspecified Status: Acute Assessment and Plan In summary this is a 43-year-old male, who is homeless he has a history of CAD, dyslipidemia, and hypertension who presented to [facility] with redness and pain of the left lower extremity. Sepsis due to cellulitis of left lower extremity Blood cultures show no growth in 2 days Wound cultures growing staph aureus Imaging per above ID consulted: On March 27 ID recommended to stop vanc & Zosyn, Ancef IV over the next couple of days and follow clinically. On March 28 I stopped the vancomycin and Zosyn. I started Ancef IV 500 mg every 8. We will continue to monitor clinically Hypertension/CAD Continue home meds, atorvastatin, atenolol, lisinopril, aspirin DVT prophylaxis with Lovenox Discharge Planning d/c pending clinical improvement and ID clearance Problem Qualifiers (1) Cellulitis: Qualified Codes: L03.119 - Cellulitis of unspecified part of limb Wilda Lloyd MD Mar 28, 2018 10:06
[2018-03-28 11:43] LABS: HEMOGLOBIN A1C 5.6 % (4.3-6.0)
[2018-03-28] MEDS: ceFAZolin INJ 500 MG in SODIUM CHLORIDE 0.9% INJ 100 ML IV SCH ×2 (13:23→21:26)
[2018-03-28] MEDS ORDERED: PHARMACY ORDERED LAB ONE (15:45)
[2018-03-28] MEDS: ATORVASTATIN 40 MG TAB PO SCH (21:25)
[2018-03-28] MEDS: LORazepam 1 MG TAB PO PRN (21:25)
[2018-03-29] VITALS (9 sets, daily range): BP systolic 132–156; BP diastolic 87–100; PULSE 63–78; RESP 16–18; TEMP 97.8–98.3; O2SAT 96–98
[2018-03-29] MEDS: ACETAMINOPHEN/HYDROcodone 325 MG/5 MG TAB PO PRN ×2 (05:44→21:42)
[2018-03-29] MEDS: ceFAZolin INJ 500 MG in SODIUM CHLORIDE 0.9% INJ 100 ML IV SCH (05:46)
--- NOTE | 2018-03-29 06:11 | HHI.PR ---
Addendum to Inpatient Note Addendum Reason: Additional Documentation Additional Information RN called stating patient has swollen upper lip, no new medications other than Ancef started yesterday. He has received 2 doses without any reaction. Will provide Benadryl for now. No signs of distress. No tongue or throat swelling. No shortness of breath. Will continue to monitor and will communicate to attending today. Jayleen Katz Mar 29, 2018 06:11
[2018-03-29] MEDS ORDERED: diphenhydrAMINE HCL 50 MG/ML VIAL IV PUSH ONE (06:15)
--- NOTE | 2018-03-29 08:31 | HHI.PR ---
Subjective Remarks Patient seen and examined this morning, their vitals are stable and the patient is afebrile. Yesterday antibiotics were switched from vancomycin and Zosyn to Ancef. The patient received 3 doses. Went to sleep. States he woke up in the middle of the night and his lips were diffusely swollen. He was having no itching of the throat. No difficulty swallowing. He was maintaining his airway without any issues. He had no known allergies that he was aware of. He denied having any respiratory distress. He received a dose of Benadryl. He currently states that his lips are still very swollen and uncomfortable. Objective Vital Signs Date Time Temp Pulse Resp B/P (MAP) Pulse Ox O2 Delivery O2 Flow Rate FiO2 03/29/18 04:00 98.2 71 16 155/100 (118) 98 03/29/18 04:00 65 03/29/18 00:00 65 03/29/18 00:00 98.2 67 18 156/98 (117) 97 03/28/18 20:00 Room Air 03/28/18 20:00 74 03/28/18 20:00 97.8 77 18 144/100 (115) 97 03/28/18 16:13 98.0 68 17 154/92 (112) 98 03/28/18 16:00 65 03/28/18 12:13 97.9 68 17 158/97 (117) 98 03/28/18 12:00 73 03/28/18 09:00 Room Air 03/28/18 08:31 97.8 63 17 140/96 (111) 98 I/O 03/28/18 03/28/18 03/28/18 03/29/18 03/29/18 03/29/18 07:00 15:00 23:00 07:00 15:00 23:00 Intake Total 687.5 ml 660 ml 580 ml Output Total 350 ml 2300 ml Balance 337.5 ml -1640 ml 580 ml Intake Oral 120 ml 560 ml 480 ml IV Total 567.5 ml 100 ml 100 ml Output Urine Total 350 ml 2300 ml # Voids 2 6 # Bowel Movements 0 1 Result Diagram: 03/28/18 0748 03/28/18 0748 Imaging Last Impressions Tibia/Fibula X-Ray 03/25/18 1133 Signed Impressions: CONCLUSION: 1. Intact well-positioned lateral malleolus fixation hardware. 2. No acute fracture or dislocation. Knee X-Ray 03/25/18 1133 Signed Impressions: CONCLUSION: 1. No acute fracture or dislocation. Chest X-Ray 03/25/18 1109 Signed Impressions: CONCLUSION: No acute cardiopulmonary findings are identified. Objective Remarks GENERAL: Well-appearing, no acute distress SKIN: Warm and dry. Multiple scabs in various stages of healing on upper and lower extremities. Left lower extremity with 2 large lesions (on nixon) and surrounding erythema. HEAD: Normocephalic. Both lips are very swollen. Airway is patent. Tongue is midline and with no swelling. EYES: No scleral icterus. No injection or drainage. NECK: Supple, trachea midline. No JVD or lymphadenopathy. CARDIOVASCULAR: Regular rate and rhythm without murmurs, gallops, or rubs. Distal pulses palpable RESPIRATORY: Breath sounds equal bilaterally. No accessory muscle use. GASTROINTESTINAL: Abdomen soft, non-tender, nondistended. MUSCULOSKELETAL: No cyanosis, or edema. A/P Problem List: (1) Cellulitis ICD Code: L03.90 - Cellulitis, unspecified Status: Acute Assessment and Plan In summary this is a 43-year-old male, who is homeless he has a history of CAD, dyslipidemia, and hypertension who presented to [place] ED with redness and pain of the left lower extremity. Swelling of the lips This is likely related to an reaction to the Ancef. Ancef has been stopped. He received 1 dose of Benadryl. I have given the patient 1 dose of Decadron 8 mg IM. We will monitor for response. Sepsis due to cellulitis of left lower extremity Blood cultures show no growth in 2 days Wound cultures growing staph aureus Imaging per above ID consulted: On March 27 ID recommended to stop vanc & Zosyn, Ancef IV over the next couple of days and follow clinically. On March 28 I stopped the vancomycin and Zosyn. I started Ancef IV 500 mg every 8. Patient had an allergic reaction to what I believe was Ancef since that was the only new medication yesterday. I stop the Ancef and we consulted ID for antibiotic recommendations. Hypertension/CAD Continue home meds, atorvastatin, atenolol, lisinopril, aspirin DVT prophylaxis with Lovenox Discharge Planning d/c pending clinical improvement and ID clearance Problem Qualifiers (1) Cellulitis: Qualified Codes: L03.119 - Cellulitis of unspecified part of limb Wilda Lloyd MD Mar 29, 2018 08:31
[2018-03-29 08:35] LABS: BASOPHIL % 0.8 % (0.0-2.0); EOSINOPHIL # 0.2 TH/MM3 (0-0.4); EOSINOPHIL % 3.4 % (0.0-4.0); HEMATOCRIT 42.1 % (39.0-51.0); HEMOGLOBIN 14.4 GM/DL (13.0-17.0); LYMPH % 23.4 % (9.0-44.0); LYMPHOCYTE # 1.2 TH/MM3 (1.0-4.8); MEAN CELL VOLUME 93.7 FL (80.0-100.0); MEAN CORPUSCULAR HEMOGLOBIN 31.9 PG (27.0-34.0); MEAN CORPUSCULAR HGB CONC 34.1 % (32.0-36.0); MEAN PLATELET VOLUME 8.5 FL (7.0-11.0); MONO % 14.9 % (0.0-8.0); MONOCYTE # 0.8 TH/MM3 (0-0.9); NEUT % 57.5 % (16.0-70.0); PLATELET COUNT 237 TH/MM3 (150-450); RED CELL DISTRIBUTION WIDTH 14.2 % (11.6-17.2); WHITE BLOOD COUNT 5.3 TH/MM3 (4.0-11.0)
[2018-03-29] MEDS: NYSTATIN SUSP 500,000 U/5 ML CUP SWISH-SWAL SCH ×4 (08:59→21:42)
[2018-03-29] MEDS: LISINOPRIL 10 MG TAB PO SCH (09:00)
[2018-03-29] MEDS: ASPIRIN 81 MG CHEW TAB CHEW SCH (09:00)
[2018-03-29] MEDS: MULTIVITAMIN TAB PO SCH (09:00)
[2018-03-29] MEDS ORDERED: DEXAMETHASONE SOD PHOS 4 MG/ML VIAL IM ONE (09:00)
[2018-03-29] MEDS: MAGNESIUM OXIDE 400 MG TAB PO SCH ×2 (09:00→21:42)
[2018-03-29] MEDS: ENOXAPARIN SODIUM 40 MG/0.4 ML SYRINGE SQ SCH (09:00)
[2018-03-29] MEDS: THIAMINE HCL 100 MG TAB PO SCH (09:00)
[2018-03-29] MEDS: FOLIC ACID 1 MG TAB PO SCH (09:00)
[2018-03-29] MEDS: ATENOLOL 25 MG TAB PO SCH ×2 (09:01→21:41)
[2018-03-29] MEDS: NICOTINE 21 MG/24 HR PATCH T-DERMAL SCH (09:01)
[2018-03-29 09:02] LABS: BICARBONATE 28.4 MEQ/L (21.0-32.0); CALCIUM 9.2 MG/DL (8.5-10.1); CREATININE 0.73 MG/DL (0.60-1.30)
[2018-03-29] MEDS: REMOVE OLD PATCH T-DERMAL SCH (09:02)
[2018-03-29] MEDS: LORazepam 1 MG TAB PO PRN (17:43)
--- NOTE | 2018-03-29 20:58 | HHI.IDPN ---
Subjective Subjective Remarks ID cesar cover for Dr. Hyatt This is a 43-year-old white male who was brought into the emergency department today with fever. The patient notes that he developed a wound on his left foot approximately 4 weeks ago, and after that, he started getting new lesions all over his legs and at the groin. He also notes that recently he has been having swelling of his right eyelid and when he woke up in the morning, his right eye would be shut because of the swelling. He was brought to the emergency department by EMS and was noted to have a temperature of 102.1 degrees. The patient also reported he was complaining of fever and chills and nausea and vomiting. The patient denies other symptoms except for generalized aches of his body. He notes heavy alcohol intake. He thinks he possibly could have been bitten by an insect in the [place] before this all began. His white blood cell count is 9.1. He denies IV drug use. Blood cultures were drawn and the results are pending. The culture of the wound of the left leg is pending. PAST MEDICAL HISTORY: Hypertension and dyslipidemia. PAST SURGICAL HISTORY: History of cardiac stent and history of surgery on the foot. Overnight events reviewed. Developed lip swelling overnight when switched to Ancef IV Responded to Solu-Medrol. Case discussed with Dr. Lloyd hospitalist No rash No diarrhea no chest pain no shortness of breath. Antibiotics None at the present time. Lines Lines okay Past Medical History Reviewed. Allergies: Coded Allergies: No Known Drug Allergies (Verified Allergy, Unknown, 12/22/17) Objective . Vital Signs Date Time Temp Pulse Resp B/P (MAP) Pulse Ox O2 Delivery O2 Flow Rate FiO2 03/29/18 16:13 98.2 77 16 133/92 (106) 97 03/29/18 12:13 97.8 72 16 146/97 (113) 97 03/29/18 12:00 65 03/29/18 10:34 Room Air 03/29/18 08:13 97.8 69 16 154/93 (113) 98 03/29/18 08:00 63 03/29/18 04:00 98.2 71 16 155/100 (118) 98 03/29/18 04:00 65 03/29/18 00:00 65 03/29/18 00:00 98.2 67 18 156/98 (117) 97 03/29/18 03/29/18 03/30/18 15:00 23:00 07:00 Intake Total 420 ml Output Total 2000 ml Balance -1580 ml Intake Oral 420 ml Output Urine Total 2000 ml # Bowel Movements 2 . Laboratory Tests Test 03/28/18 07:48 03/29/18 07:56 White Blood Count 4.4 TH/MM3 5.3 TH/MM3 Red Blood Count 4.42 MIL/MM3 4.50 MIL/MM3 Hemoglobin 14.2 GM/DL 14.4 GM/DL Hematocrit 41.6 % 42.1 % Mean Corpuscular Volume 94.1 FL 93.7 FL Mean Corpuscular Hemoglobin 32.1 PG 31.9 PG Mean Corpuscular Hemoglobin Concent 34.2 % 34.1 % Red Cell Distribution Width 14.6 % 14.2 % Platelet Count 214 TH/MM3 237 TH/MM3 Mean Platelet Volume 8.6 FL 8.5 FL Neutrophils (%) (Auto) 60.2 % 57.5 % Lymphocytes (%) (Auto) 21.9 % 23.4 % Monocytes (%) (Auto) 14.3 % 14.9 % Eosinophils (%) (Auto) 2.6 % 3.4 % Basophils (%) (Auto) 1.0 % 0.8 % Neutrophils # (Auto) 2.6 TH/MM3 3.0 TH/MM3 Lymphocytes # (Auto) 1.0 TH/MM3 1.2 TH/MM3 Monocytes # (Auto) 0.6 TH/MM3 0.8 TH/MM3 Eosinophils # (Auto) 0.1 TH/MM3 0.2 TH/MM3 Basophils # (Auto) 0.0 TH/MM3 0.0 TH/MM3 CBC Comment DIFF FINAL DIFF FINAL Differential Comment Laboratory Tests Test 03/28/18 07:48 03/29/18 07:56 Blood Urea Nitrogen 8 MG/DL 10 MG/DL Creatinine 0.70 MG/DL 0.73 MG/DL Random Glucose 85 MG/DL 88 MG/DL Total Protein 7.7 GM/DL Albumin 2.7 GM/DL Calcium Level 9.2 MG/DL 9.2 MG/DL Phosphorus Level 4.7 MG/DL Magnesium Level 1.6 MG/DL Alkaline Phosphatase 96 U/L Aspartate Amino Transf (AST/SGOT) 161 U/L Alanine Aminotransferase (ALT/SGPT) 179 U/L Total Bilirubin 0.6 MG/DL Sodium Level 137 MEQ/L 136 MEQ/L Potassium Level 4.2 MEQ/L 3.8 MEQ/L Chloride Level 100 MEQ/L 99 MEQ/L Carbon Dioxide Level 30.4 MEQ/L 28.4 MEQ/L Anion Gap 7 MEQ/L 9 MEQ/L Estimat Glomerular Filtration Rate 122 ML/MIN 116 ML/MIN Imaging Last Impressions Tibia/Fibula X-Ray 03/25/18 1133 Signed Impressions: CONCLUSION: 1. Intact well-positioned lateral malleolus fixation hardware. 2. No acute fracture or dislocation. Knee X-Ray 03/25/18 1133 Signed Impressions: CONCLUSION: 1. No acute fracture or dislocation. Chest X-Ray 03/25/18 1109 Signed Impressions: CONCLUSION: No acute cardiopulmonary findings are identified. Physical Exam GENERAL: Well-developed male who is in no acute distress. He looks chronically ill. HEENT: Head is atraumatic. The right eye stuck shut with purulent creamy crusted debris. The left eye opens freely and has no visible lesions. The left pupil is reactive and has no icterus. Oropharynx mucosa is moist. Positive thrush on the tongue. NECK: Supple without adenopathy. LUNGS: Clear breath sounds. HEART: Regular S1, S2, without murmurs, rubs or gallops. ABDOMEN: Bowel sounds present. Soft, nontender. RECTAL: Not performed. EXTREMITIES: The left leg erythema appears remarkably improved no induration noted. On the left knee there is an area of scabbing noted with some moist discharge underneath. SKIN: Diffuse erythematous hue of the chest, face, neck and arms. Skin warm and moist. No diffuse rash appreciated. NEUROLOGIC: No gross focal finding. PSYCHIATRIC: Patient is calm and cooperative. Assessment & Plan Remarks 1. Cellulitis involving the left leg. The patient has multiple skin lesions suggesting superficial skin abscesses. 2. Oral thrush. 3. Possible sepsis. The patient presented with elevated temperature and heart rate. However, lactic acid level is normal. RECOMMENDATIONS: Start Levaquin oral Follow clinically especially the lip swelling Follow clinically the left knee area Follow cultures Case discussed with Dr. Lloyd as well as nurse for the patient. Dr. Hyatt to resume care in [facility]. Jewell Garvey MD Mar 29, 2018 20:58
[2018-03-29] MEDS ORDERED: LEVOFLOXACIN 500 MG TAB PO SCH (21:00)
[2018-03-29] MEDS: ATORVASTATIN 40 MG TAB PO SCH (21:41)
[2018-03-30] VITALS: BP 141/74; PULSE 75; PULSE 79; RESP 18; TEMP 97.7; O2SAT 97
[2018-03-30 04:00] VITALS: BP 157/98; PULSE 71; PULSE 76; RESP 16; TEMP 98.5; O2SAT 95
[2018-03-30] MEDS: ACETAMINOPHEN/HYDROcodone 325 MG/5 MG TAB PO PRN (04:57)
[2018-03-30] MEDS ORDERED: LEVOFLOXACIN 500 MG TAB PO SCH (07:00)
[2018-03-30 08:00] VITALS: BP 134/95; PULSE 72; PULSE 79; RESP 20; TEMP 97.8; O2SAT 98
--- NOTE | 2018-03-30 08:04 | HHI.PR ---
Subjective Remarks Patient seen and examined this morning, their vitals are stable and the patient is afebrile. Lip swelling completely resolved by 5pm yesterday. He feels well this morning. Reports no further drainage from the site. Objective Vital Signs Date Time Temp Pulse Resp B/P (MAP) Pulse Ox O2 Delivery O2 Flow Rate FiO2 03/30/18 04:00 76 03/30/18 04:00 98.5 71 16 157/98 (117) 95 03/30/18 04:00 Room Air 03/30/18 00:00 Room Air 03/30/18 00:00 79 03/30/18 00:00 97.7 75 18 141/74 (96) 97 03/29/18 21:40 Room Air 03/29/18 20:00 98.3 77 18 132/87 (102) 96 03/29/18 20:00 78 03/29/18 16:13 98.2 77 16 133/92 (106) 97 03/29/18 12:13 97.8 72 16 146/97 (113) 97 03/29/18 12:00 65 03/29/18 10:34 Room Air 03/29/18 08:13 97.8 69 16 154/93 (113) 98 I/O 03/29/18 03/29/18 03/29/18 03/30/18 03/30/18 03/30/18 07:00 15:00 23:00 07:00 15:00 23:00 Intake Total 580 ml 420 ml 480 ml Output Total 2000 ml Balance 580 ml -1580 ml 480 ml Intake Oral 480 ml 420 ml 480 ml IV Total 100 ml Output Urine Total 2000 ml # Voids 6 2 # Bowel Movements 2 Result Diagram: 03/29/18 0756 03/29/18 0756 Imaging Last Impressions Tibia/Fibula X-Ray 03/25/18 1133 Signed Impressions: CONCLUSION: 1. Intact well-positioned lateral malleolus fixation hardware. 2. No acute fracture or dislocation. Knee X-Ray 03/25/18 1133 Signed Impressions: CONCLUSION: 1. No acute fracture or dislocation. Chest X-Ray 03/25/18 1109 Signed Impressions: CONCLUSION: No acute cardiopulmonary findings are identified. Objective Remarks GENERAL: Well-appearing, no acute distress SKIN: Warm and dry. Multiple scabs in various stages of healing on upper and lower extremities. Left lower extremity with 2 large lesions (on nixon) that have formed a scab with minimal surrounding erythema. HEAD: Normocephalic. Lip swelling has resolved. Airway is patent. Tongue is midline and with no swelling. EYES: No scleral icterus. No injection or drainage. NECK: Supple, trachea midline. No JVD or lymphadenopathy. CARDIOVASCULAR: Regular rate and rhythm without murmurs, gallops, or rubs. Distal pulses palpable RESPIRATORY: Breath sounds equal bilaterally. No accessory muscle use. GASTROINTESTINAL: Abdomen soft, non-tender, nondistended. MUSCULOSKELETAL: No cyanosis, or edema. A/P Problem List: (1) Cellulitis ICD Code: L03.90 - Cellulitis, unspecified Status: Acute Assessment and Plan In summary this is a 43-year-old male, who is homeless he has a history of CAD, dyslipidemia, and hypertension who presented to [facility] ED with redness and pain of the left lower extremity. Patient had fevers. Cultures are positive for staph. The patient was placed on Vantin Zosyn. He was then transitioned to IV Ancef. The patient developed significant lip swelling after 3 doses of Ancef. This was stopped. He was given a dose of Decadron for this. Infectious disease then switch the patient to oral Levaquin Swelling of the lips This is likely related to an reaction to the Ancef. Ancef has been stopped. He received 1 dose of Benadryl. I have given the patient 1 dose of Decadron 8 mg IM. We will monitor for response. Sepsis due to cellulitis of left lower extremity Blood cultures show no growth in 4 days Wound cultures growing staph aureus Imaging per above Levaquin 500 mg p.o. daily Hypertension/CAD Continue home meds, atorvastatin, atenolol, lisinopril, aspirin DVT prophylaxis with Lovenox Discharge Planning Currently on PO abx. If cleared by ID may go home today. Problem Qualifiers (1) Cellulitis: Qualified Codes: L03.119 - Cellulitis of unspecified part of limb Wilda Lloyd MD Mar 30, 2018 08:04
[2018-03-30] MEDS: REMOVE OLD PATCH T-DERMAL SCH (09:00)
--- NOTE | 2018-03-30 09:12 | HHI.DCPOC ---
Discharge Care Plan Diagnosis: (1) Cellulitis Goals to Promote Your Health * To prevent worsening of your condition and complications * To maintain your health at the optimal level Directions to Meet Your Goals Take your medications as prescribed Follow your dietary instruction Follow activity as directed Keep your appointments as scheduled Take your immunizations and boosters as scheduled If your symptoms worsen call your PCP, if no PCP go to Urgent Care Center or Emergency Room Smoking is Dangerous to Your Health. Avoid second hand smoke Call the 24-hour hour crisis hotline for domestic abuse at Wilda Lloyd MD Mar 30, 2018 09:12
[2018-03-30] MEDS: LISINOPRIL 10 MG TAB PO SCH (10:02)
[2018-03-30] MEDS: NYSTATIN SUSP 500,000 U/5 ML CUP SWISH-SWAL SCH ×3 (10:02→18:00)
[2018-03-30] MEDS: ATENOLOL 25 MG TAB PO SCH (10:03)
[2018-03-30] MEDS: MAGNESIUM OXIDE 400 MG TAB PO SCH (10:03)
[2018-03-30] MEDS: MULTIVITAMIN TAB PO SCH (10:03)
[2018-03-30] MEDS: THIAMINE HCL 100 MG TAB PO SCH (10:03)
[2018-03-30] MEDS: FOLIC ACID 1 MG TAB PO SCH (10:03)
[2018-03-30] MEDS: ASPIRIN 81 MG CHEW TAB CHEW SCH (10:03)
[2018-03-30] MEDS: ENOXAPARIN SODIUM 40 MG/0.4 ML SYRINGE SQ SCH (10:04)
[2018-03-30] MEDS: NICOTINE 21 MG/24 HR PATCH T-DERMAL SCH (10:07)
[2018-03-30 10:48] LABS: AUTOMATED NEUTROPHIL # 10.5 TH/MM3 (1.8-7.7); BASOPHIL % 0.2 % (0.0-2.0); HEMATOCRIT 41.8 % (39.0-51.0); HEMOGLOBIN 14.1 GM/DL (13.0-17.0); MEAN CELL VOLUME 94.1 FL (80.0-100.0); MEAN CORPUSCULAR HEMOGLOBIN 31.8 PG (27.0-34.0); MEAN CORPUSCULAR HGB CONC 33.8 % (32.0-36.0); MEAN PLATELET VOLUME 8.7 FL (7.0-11.0); MONO % 3.9 % (0.0-8.0); MONOCYTE # 0.5 TH/MM3 (0-0.9); NEUT % 87.9 % (16.0-70.0); PLATELET COUNT 309 TH/MM3 (150-450); RED BLOOD COUNT 4.44 MIL/MM3 (4.50-5.90); RED CELL DISTRIBUTION WIDTH 14.2 % (11.6-17.2)
[2018-03-30 12:00] VITALS: BP_SYST 119; BP_SYST 146; BP_DIAS 56; BP_DIAS 95; PULSE 66; PULSE 76; PULSE 79; RESP 20; TEMP 98; O2SAT 95; O2SAT 96
[2018-03-30 12:45] LABS: BICARBONATE 20.4 MEQ/L (21.0-32.0); CALCIUM 9.2 MG/DL (8.5-10.1); CREATININE 0.73 MG/DL (0.60-1.30)
[2018-03-30 16:00] VITALS: BP 148/97; PULSE 80; PULSE 82; RESP 20; TEMP 98.1; O2SAT 98
[2018-03-30] MEDS ORDERED: CIPR-9 PO (17:45)
--- NOTE | 2018-03-30 17:56 | HHI.IDPN ---
Note Infectious Disease Note Patient feels okay. The skin lesions at the legs have dried up. Afebrile. Admitted with fever and multiple skin lesions. PAST MEDICAL HISTORY: Hypertension and dyslipidemia. PAST SURGICAL HISTORY: History of cardiac stent and history of surgery on the foot. ALLERGIES: NO KNOWN DRUG ALLERGIES. ANTIBIOTICS: Levaquin. SOCIAL HISTORY: Positive tobacco use, half a pack a day. Positive alcohol use. Denies IV drug use. The patient notes that he was recently and moved from [place], [place] to [place] to try to get his life going again. He was born in [place]. OBJECTIVE: Vital Signs Date Time Temp Pulse Resp B/P (MAP) Pulse Ox O2 Delivery O2 Flow Rate FiO2 03/30/18 12:00 98.0 79 20 146/95 (112) 96 03/30/18 08:00 97.8 79 20 134/95 (108) 98 03/30/18 04:00 76 03/30/18 04:00 98.5 71 16 157/98 (117) 95 03/30/18 04:00 Room Air 03/30/18 00:00 Room Air 03/30/18 00:00 79 03/30/18 00:00 97.7 75 18 141/74 (96) 97 03/29/18 21:40 Room Air 03/29/18 20:00 98.3 77 18 132/87 (102) 96 03/29/18 20:00 78 Laboratory Tests Test 03/29/18 07:56 03/30/18 10:15 White Blood Count 5.3 TH/MM3 12.0 TH/MM3 Red Blood Count 4.50 MIL/MM3 4.44 MIL/MM3 Hemoglobin 14.4 GM/DL 14.1 GM/DL Hematocrit 42.1 % 41.8 % Mean Corpuscular Volume 93.7 FL 94.1 FL Mean Corpuscular Hemoglobin 31.9 PG 31.8 PG Mean Corpuscular Hemoglobin Concent 34.1 % 33.8 % Red Cell Distribution Width 14.2 % 14.2 % Platelet Count 237 TH/MM3 309 TH/MM3 Mean Platelet Volume 8.5 FL 8.7 FL Neutrophils (%) (Auto) 57.5 % 87.9 % Lymphocytes (%) (Auto) 23.4 % 8.0 % Monocytes (%) (Auto) 14.9 % 3.9 % Eosinophils (%) (Auto) 3.4 % 0.0 % Basophils (%) (Auto) 0.8 % 0.2 % Neutrophils # (Auto) 3.0 TH/MM3 10.5 TH/MM3 Lymphocytes # (Auto) 1.2 TH/MM3 1.0 TH/MM3 Monocytes # (Auto) 0.8 TH/MM3 0.5 TH/MM3 Eosinophils # (Auto) 0.2 TH/MM3 0.0 TH/MM3 Basophils # (Auto) 0.0 TH/MM3 0.0 TH/MM3 CBC Comment DIFF FINAL DIFF FINAL Differential Comment Laboratory Tests Test 03/29/18 07:56 03/30/18 10:15 Blood Urea Nitrogen 10 MG/DL 12 MG/DL Creatinine 0.73 MG/DL 0.73 MG/DL Random Glucose 88 MG/DL 174 MG/DL Calcium Level 9.2 MG/DL 9.2 MG/DL Sodium Level 136 MEQ/L 135 MEQ/L Potassium Level 3.8 MEQ/L 4.0 MEQ/L Chloride Level 99 MEQ/L 101 MEQ/L Carbon Dioxide Level 28.4 MEQ/L 20.4 MEQ/L Anion Gap 9 MEQ/L 14 MEQ/L Estimat Glomerular Filtration Rate 116 ML/MIN 116 ML/MIN PHYSICAL EXAMINATION: GENERAL: NAD. HEENT: Head is atraumatic. PRLA. Oropharynx mucosa is moist. No lesions. NECK: Supple without adenopathy. LUNGS: Clear breath sounds. HEART: Regular S1, S2, without murmurs, rubs or gallops. ABDOMEN: Bowel sounds present. Soft, nontender. EXTREMITIES: The left leg is erythema is decreased. dried lesions with scabbed lesion at left knee which is the larger lesion. SKIN: Diffuse erythematous hue of the chest, face, neck and arms. Skin warm and moist. No diffuse rash appreciated. NEUROLOGIC: No gross focal finding. PSYCHIATRIC: Calm and cooperative. IMPRESSION: 1. Cellulitis involving the left leg. Improved. The patient has multiple skin lesions suggesting superficial skin abscesses. MSSA and Group A strep. 2. Oral thrush. 3. Possible sepsis. The patient presented with elevated temperature and heart rate. However, lactic acid level is normal. 4. Allergic reaction to Ancef. Stable. Appreciative of care given. RECOMMENDATIONS: Okay to discharge on PO Ciprofloxacin x 7 days. ([facility] Wilson Hyatt MD Mar 30, 2018 17:56
== END 2018-03-30 19:30 | disposition home or self-care (01) | DRG 872 ==
LOC: NEPE 10:55 → NEDA 14:31 → N04A 18:16 → N04B 03-26 18:44
PROVIDERS: ADMIT Hospitalist; ATTEND Hospitalist
DX: A41.9 Sepsis, unspecified organism (principal); B37.0 Candidal stomatitis; L03.116 Cellulitis of left lower limb; E83.42 Hypomagnesemia; I10 Essential (primary) hypertension; E87.6 Hypokalemia; I25.10 Atherosclerotic heart disease of native coronary artery without angina pectoris; T36.1X5A Adverse effect of cephalosporins and other beta-lactam antibiotics, initial encounter; R22.0 Localized swelling, mass and lump, head; A49.01 Methicillin susceptible Staphylococcus aureus infection, unspecified site; B95.0 Streptococcus, group A, as the cause of diseases classified elsewhere; E78.5 Hyperlipidemia, unspecified; F10.10 Alcohol abuse, uncomplicated; F17.210 Nicotine dependence, cigarettes, uncomplicated; Z95.5 Presence of coronary angioplasty implant and graft; I25.2 Old myocardial infarction; Z59.0 Homelessness
CPT/HCPCS: 71045; 73560; 73590; 80048; 80053; 80202; 80307; 81001; 82550; 82552; 83036; 83605; 83735; 83880; 84100; 84439; 84443; 84484; 85025; 85610; 85730; 86140; 86403; 87040; 87070; 87147; 87186; 93005; 96365; 96367; J0690; J1100; J1200; J1650; J2543; J3370; J3475; J7030; J7040; J7050

== ENCOUNTER 2018-06-20 16:21 | Observation (INO) ==
[2018-06-20] MEDS ORDERED: Sodium Chlor 0.9% Inj 500 ML IV.SIG ONE (16:37)
--- NOTE | 2018-06-20 16:47 | ED ---
HPI General Chief complaint: Chest Pain Stated complaint: Chest Pain Time Seen by Provider: 06/20/18 16:36 History of Present Illness HPI narrative: This is a 43-year-old male with history of coronary disease with history of RI in the past. He also reports a history of alcohol use. He presents via EMS for evaluation of chest pain. Symptoms started yesterday midday as a left-sided chest pressure. Throughout yesterday and today the pain worsened which prompted evaluation. He now describes as a sharp pain that radiates into his back and neck. There is associated nausea, vomiting. He reports some paresthesias in his hands as well. Per EMS the patient was noted to be hypotensive on scene with a blood pressure 76/55 and a heart rate of 130. He received 1 L of normal saline with improvement of his vital signs, currently his blood pressure is 105/75 and his heart rate is 94. In addition to nausea, chest pain, patient is complaining of dizziness and lightheadedness. Symptoms are moderate. No obvious aggravating or relieving factors. He received 4 baby aspirin via EMS. No other complaints. Related Data Home Medications Medication Instructions Recorded Confirmed No Known Home Medications 06/20/18 06/20/18 Allergies Allergy/AdvReac Type Severity Reaction Status Date / Time No Known Allergies Allergy Unverified 06/20/18 16:33 Review of Systems ROS: all other systems reviewed are negative PMFSH Medical History Medical History ETOH abuse (Acute) Hypercholesteremia (Acute) Hypertension (Acute) Myocardial infarct (Acute) Surgical History Surgical History History of foot surgery (Acute) Social History Social History Substance History: No History of Abuse Second Hand Smoke Exposure: Yes Smoking Status: Current every day smoker Tobacco Type: Cigarettes How Often Do You Have a Drink Containing Alcohol: 4 or more times a week Recent Travel in [facility] within the Last 8 Weeks: No Recent Out of Country Travel within the Last 8 Weeks: No Immunization History Tetanus Immunization Year if Known: 2018 Exam Narrative Exam Narrative: GENERAL: Well-developed well-nourished male in no acute distress. Vital signs reviewed. SKIN: Warm and dry. HEAD: Atraumatic. Normocephalic. EYES: Pupils equal and round. No scleral icterus. No injection or drainage. ENT: No nasal bleeding or discharge. Mucous membranes pink and moist. NECK: Trachea midline. No JVD. CARDIOVASCULAR: Regular rate and rhythm. No murmur appreciated. RESPIRATORY: No accessory muscle use. Clear to auscultation. Breath sounds equal bilaterally. GASTROINTESTINAL: Abdomen soft, non-tender, nondistended. Hepatic and splenic margins not palpable. MUSCULOSKELETAL: No obvious deformities. No clubbing. No cyanosis. No edema. NEUROLOGICAL: Awake and alert. No obvious cranial nerve deficits. Motor grossly within normal limits. Normal speech. PSYCHIATRIC: Appropriate mood and affect; insight and judgment normal. Course Initial Documented Vital Signs Temperature 98.6 F 06/20/18 16:33 Pulse Rate 94 H 06/20/18 16:33 Respiratory Rate 17 06/20/18 16:33 Blood Pressure 105/75 06/20/18 16:33 Pulse Oximetry 95 06/20/18 16:33 Last Documented Vital Signs Temperature 98.6 F 06/20/18 16:33 Pulse Rate 90 06/20/18 18:41 Respiratory Rate 19 06/20/18 18:41 Blood Pressure 149/99 H 06/20/18 18:41 Pulse Oximetry 93 L 06/20/18 18:41 Medical Decision Making MDM Narrative Medical decision making narrative: The patient was placed on ECG monitoring pulse oximetry. A 12 EKG was obtained revealing sinus rhythm with a rate of 94 , slight ST depression noted in I, II, II, AVF, V4-6, reviewed by Dr. Zurita , lab work, chest x-ray been ordered. CTA the aorta has been ordered. An i- STAT profile has been ordered in order to obtain renal function results rapidly. Patient was given an additional 500 mL normal saline bolus. The patient's imaging studies and lab studies have been reviewed and found to be reassuring. CTA reveals no evidence of dissection. There are 3 pulmonary nodules and the recommendation is for repeat CT imaging in 12 months. Cardiac enzymes are negative. The patient's blood pressure improved during his hospital stay. Morphine and nitroglycerin were then ordered. Protonix was also ordered for potential gastritis. At this point in time the plan will be to admit the patient to the chest pain center for serial cardiac enzymes and rule out purposes. He is agreeable. Medical Screen Exam Complete: Yes Emergency Medical Condition: Yes Differential Diagnosis Differential Diagnosis: Acute coronary syndrome, pancreatitis, gastritis, aortic dissection, pulmonary embolism, pneumothorax, pericarditis, myocarditis Lab Data Result diagrams: 06/20/18 16:42 06/20/18 16:51 Lab Results 06/20/18 06/20/18 06/20/18 Range/Units 16:42 16:42 16:42 WBC 11.0 (4.0-11.0) th/mm3 RBC 4.42 L (4.50-5.90) mil/mm3 Hgb 14.8 (13.0-17.0) gm/dL POC Hgb (Calc) 14.6 (13.0-17.0) g/dL Hct 41.7 (39.0-51.0) % POC Hct 43.0 (39-51.0) % MCV 94.3 (80.0-100.0) fL MCH 33.4 (27.0-34.0) pg MCHC 35.4 (32.0-36.0) % RDW 14.5 (11.6-17.2) % Plt Count 243 (150-450) th/mm3 MPV 8.1 (7.0-11.0) fL Neut % (Auto) 83.8 H (16.0-70.0) % Lymph % (Auto) 6.7 L (9.0-44.0) % [place] % (Auto) 7.3 (0.0-8.0) % Eos % (Auto) 0.7 (0.0-4.0) % Baso % (Auto) 1.5 (0.0-2.0) % Neut # (Auto) 9.2 H (1.8-7.7) th/mm3 Lymph # (Auto) 0.7 L (1.0-4.8) th/mm3 [place] # (Auto) 0.8 (0.0-0.9) th/mm3 Eos # (Auto) 0.1 (0.0-0.4) th/mm3 Baso # (Auto) 0.2 (0.0-0.2) th/mm3 WBC Differential . Differential Comment Auto diff final PT 10.8 (9.8-11.6) sec INR 1.1 Ratio APTT 25.4 (24.3-30.1) sec POC Sodium 141 (137-144) mmol/L Sodium (136-145) meq/L POC Potassium 3.2 L (3.6-5.0) mmol/L Potassium (3.5-5.1) meq/L POC Chloride 97 L (102-111) mmol/L Chloride (98-107) meq/L Carbon Dioxide (21.0-32.0) meq/L Anion Gap (5-15) meq/L POC BUN 11 (5-21) mg/dL BUN (7-18) mg/dL Creatinine (0.60-1.30) mg/dL POC Creatinine 1.4 H (0.6-1.3) mg/dL Estimated GFR (>89) mL/min POC Glucose 76 (68-110) mg/dL Random Glucose (74-106) mg/dL Calcium (8.5-10.1) mg/dL Magnesium (1.5-2.5) mg/dL Total Bilirubin (0.2-1.0) mg/dL AST (15-37) U/L ALT (12-78) U/L Alkaline Phosphatase (45-117) U/L Total Creatine Kinase (39-308) U/L Troponin I (0.02-0.05) ng/mL Total Protein (6.4-8.2) g/dL Albumin (3.4-5.0) g/dL Lipase (73-393) U/L Serum Alcohol (0-5) mg/dL 06/20/18 Range/Units 16:51 WBC (4.0-11.0) th/mm3 RBC (4.50-5.90) mil/mm3 Hgb (13.0-17.0) gm/dL POC Hgb (Calc) (13.0-17.0) g/dL Hct (39.0-51.0) % POC Hct (39-51.0) % MCV (80.0-100.0) fL MCH (27.0-34.0) pg MCHC (32.0-36.0) % RDW (11.6-17.2) % Plt Count (150-450) th/mm3 MPV (7.0-11.0) fL Neut % (Auto) (16.0-70.0) % Lymph % (Auto) (9.0-44.0) % [place] % (Auto) (0.0-8.0) % Eos % (Auto) (0.0-4.0) % Baso % (Auto) (0.0-2.0) % Neut # (Auto) (1.8-7.7) th/mm3 Lymph # (Auto) (1.0-4.8) th/mm3 [place] # (Auto) (0.0-0.9) th/mm3 Eos # (Auto) (0.0-0.4) th/mm3 Baso # (Auto) (0.0-0.2) th/mm3 WBC Differential Differential Comment PT (9.8-11.6) sec INR Ratio APTT (24.3-30.1) sec POC Sodium (137-144) mmol/L Sodium 142 (136-145) meq/L POC Potassium (3.6-5.0) mmol/L Potassium 3.3 L (3.5-5.1) meq/L POC Chloride (102-111) mmol/L Chloride 102 (98-107) meq/L Carbon Dioxide 30.5 (21.0-32.0) meq/L Anion Gap 10 (5-15) meq/L POC BUN (5-21) mg/dL BUN 13 (7-18) mg/dL Creatinine 1.50 H (0.60-1.30) mg/dL POC Creatinine (0.6-1.3) mg/dL Estimated GFR 51 L (>89) mL/min POC Glucose (68-110) mg/dL Random Glucose 78 (74-106) mg/dL Calcium 8.8 (8.5-10.1) mg/dL Magnesium 1.4 L (1.5-2.5) mg/dL Total Bilirubin 0.5 (0.2-1.0) mg/dL AST 73 H (15-37) U/L ALT 53 (12-78) U/L Alkaline Phosphatase 89 (45-117) U/L Total Creatine Kinase 55 (39-308) U/L Troponin I Less than 0.02 L (0.02-0.05) ng/mL Total Protein 7.7 (6.4-8.2) g/dL Albumin 3.1 L (3.4-5.0) g/dL Lipase 163 (73-393) U/L Serum Alcohol 22 H (0-5) mg/dL Imaging Data Radiologist's impression: Chest X-Ray 06/20/18 16:37 CONCLUSION: Negative examination. Thoracic Aorta CT 06/20/18 16:37 CONCLUSION: 1. No acute abnormality. 2. 3 pulmonary nodules on the right. These are nonspecific in their CT appearance. No prior studies involve this area. Current guidelines suggest a repeat CT of the thorax in 6-12 months. 3. Coronary artery atherosclerotic calcifications. 4. Colonic diverticulosis. Discharge Plan Discharge Disposition Patient Disposition: 30 Still Patient Discharge Condition Condition: Stable Discharge Details Diagnosis: Chest pain Physicians Team ED Provider: Baudilio Zurita ED Midlevel Provider: Gio Prescott Primary Care Provider: UNKNOWN, Rxs /Orders / Referrals /Forms Prescriptions: No Action No Known Home Medications RF: 0 Discharge Instructions Patient Printed Instructions: Chest Pain (ED) Discharge Interventions Interventions: Vital Signs Last Done: 06/20/18 17:37 Status ED Status: With Doctor
[2018-06-20 17:10] LABS: Baso # (Auto) 0.2 th/mm3 (0.0-0.2); Baso % (Auto) 1.5 % (0.0-2.0); Eos # (Auto) 0.1 th/mm3 (0.0-0.4); Eos % (Auto) 0.7 % (0.0-4.0); Hematocrit 41.7 % (39.0-51.0); Hemoglobin 14.8 gm/dL (13.0-17.0); Lymph # (Auto) 0.7 th/mm3 (1.0-4.8); Lymph % (Auto) 6.7 % (9.0-44.0); Mean Corpuscular HGB Conc 35.4 % (32.0-36.0); Mean Corpuscular Hemoglobin 33.4 pg (27.0-34.0); Mean Corpuscular Volume 94.3 fL (80.0-100.0); Mean Platelet Volume 8.1 fL (7.0-11.0); Mono # (Auto) 0.8 th/mm3 (0.0-0.9); Mono % (Auto) 7.3 % (0.0-8.0); Neut # (Auto) 9.2 th/mm3 (1.8-7.7); Neut % (Auto) 83.8 % (16.0-70.0); Platelet Count 243 th/mm3 (150-450); Red Blood Count 4.42 mil/mm3 (4.50-5.90); Red Cell Distribution Width 14.5 % (11.6-17.2)
--- NOTE | 2018-06-20 17:20 | XR ---
EXAM DATE: 06/20/2018 5:17 PM EDT AGE/SEX: 43 years / Male INDICATIONS: Chest and upper back pain for a few days. CLINICAL DATA: This is the patient's initial encounter. Patient reports that signs and symptoms have been present for 2 days and indicates a pain score of 5/10. MEDICAL/SURGICAL HISTORY: . Heart disease. Hypertension. Myocardial infarction None. COMPARISON: [facility] [place], CHEST 1V SINGLE AP, 04/30/2018. . FINDINGS: A single AP view of the chest demonstrates the lungs to be symmetrically aerated without evidence of mass, infiltrate or effusion. The cardiomediastinal contours are unremarkable. Osseous structures a re intact. CONCLUSION: Negative examination. Electronically signed by: Abelino Shaw MD 06/20/2018 5:18 PM EDT
[2018-06-20 17:23] LABS: Alanine Aminotransferase 53 U/L (12-78); Albumin 3.1 g/dL (3.4-5.0); Anion Gap 10 meq/L (5-15); Aspartate Aminotransferase 73 U/L (15-37); Blood Urea Nitrogen 13 mg/dL (7-18); Calcium 8.8 mg/dL (8.5-10.1); Carbon Dioxide 30.5 meq/L (21.0-32.0); Chloride 102 meq/L (98-107); Glomerular Filtration Rate 51 mL/min (>89); Glucose,Random 78 mg/dL (74-106); Lipase 163 U/L (73-393); Magnesium 1.4 mg/dL (1.5-2.5); Potassium 3.3 meq/L (3.5-5.1); Sodium 142 meq/L (136-145)
[2018-06-20 17:25] LABS: Activated Partial Thrombo Time 25.4 sec (24.3-30.1); INR 1.1 Ratio; Prothrombin Time 10.8 sec (9.8-11.6)
[2018-06-20 17:26] LABS: Alkaline Phosphatase 89 U/L (45-117); Total Protein 7.7 g/dL (6.4-8.2)
[2018-06-20 17:39] LABS: Alcohol 22 mg/dL (0-5); Creatine Kinase 55 U/L (39-308)
--- NOTE | 2018-06-20 18:45 | CT ---
EXAM DATE: 06/20/2018 6:17 PM EDT AGE/SEX: 43 years / Male INDICATIONS: Substernal chest pain and epigastric pain for two days. CLINICAL DATA: This is the patient's initial encounter. Patient reports that signs and symptoms have been present for 2 days and indicates a pain score of 6/10. MEDICAL/SURGICAL HISTORY: Hypertension. Myocardial infarction. Diverticulitis. None. RADIATION DOSE: 6.26 CTDI (mGy) COMPARISON: No prior exams available for comparison. TECHNIQUE: Volumetric scanning was performed using a multi-row detector CT scanner during bolus infu ji of 100 ml Omnipaque 350 (iohexol) nonionic water-soluble contrast as a single exam dose. The d marsha was post processed with a variety of visualization algorithms including full volume maximum inten sity projection, multi-planar sliding thin slab reformation, curved planar reformation, and surface r endering techniques. Using automated exposure control and adjustment of the mA and/or kV according t o patient size, radiation dose was kept as low as reasonably achievable to obtain optimal diagnostic quality images. DICOM format image data is available electronically for review and comparison. FINDINGS: THORACIC/ABDOMINAL AORTA: The thoracic and abdominal aorta are normal in caliber and course. Inflow v essels are patent. Conventional anatomy involving the arch vessels. These are patent. The celiac, SMA , GAY, and renal arteries are patent. 2 renal arteries supply both kidneys. HEART AND MEDIASTINUM: The heart is normal in size. No pericardial effusion. Coronary artery atherosc lerotic calcifications are noted. Pulmonary arteries are normal in caliber. No mass or adenopathy. No mediastinal hematoma. LUNG PARENCHYMA: 3 small smoothly marginated pulmonary nodules are seen on the right. Within the righ t upper lobe these measure 3 mm and 6 mm and within the subpleural aspects of the superior segment of the right lower lobe 5 mm. No dominant mass. No acute infiltrate. OTHER STRUCTURES: Abdominal viscera is unremarkable on this limited evaluation of those structures. Scattered colonic diverticuli observed. CONCLUSION: 1. No acute abnormality. 2. 3 pulmonary nodules on the right. These are nonspecific in their CT appearance. No prior studies involve this area. Current guidelines suggest a repeat CT of the thorax in 6-12 months. 3. Coronary artery atherosclerotic calcifications. 4. Colonic diverticulosis. Electronically signed by: Abelino Shaw MD 06/20/2018 6:44 PM EDT
[2018-06-20] MEDS ORDERED: Pantoprazole Inj 40 MG Vial IV.PUSH ONE (19:12)
[2018-06-20] MEDS ORDERED: Morphine Inj 4 MG/ML Vial IV.PUSH ONE (19:12)
--- NOTE | 2018-06-20 21:57 | ECG ---
Date Performed: 06/20/2018 Time Performed: 16:41:32 PTAGE: 43 years EKG: Sinus rhythm NONSPECIFIC T-WAVE ABNORMALITY BORDERLINE ECG NO PREVIOUS TRACING DOCTOR: Kylie Jules Interpretating Date/Time 06/20/2018 21:54:36
[2018-06-20 22:44] LABS: Creatine Kinase 64 U/L (39-308)
[2018-06-21 00:52] LABS: Creatine Kinase 71 U/L (39-308)
[2018-06-21 03:48] VITALS: RESP 16
[2018-06-21 07:38] VITALS: O2SAT 97
[2018-06-21] MEDS ORDERED: Potassium Chloride 10 MEQ ER Capsule PO ONE (10:00)
[2018-06-21] MEDS ORDERED: Aspirin 325 MG Tablet PO SCH (10:00)
[2018-06-21 12:00] VITALS: BP 141/107; PULSE 78; TEMP 98.1
--- NOTE | 2018-06-21 12:01 | P.HPCA ---
History of Present Illness Primary Care Physician: UNKNOWN Chief Complaint: Chest pain History of Present Illness: This is a 43-year-old male that has stated history of CAD with 3 stents 3 years ago while in [place], hyperlipidemia, tobacco abuse that presents to ED via EMS with plan of chest discomfort. Patient states he has had 3 days of pressure in his chest that has essentially been pretty constant. Found nothing to worsen or improve it. States the discomfort essentially has completely resolved after getting nitroglycerin in the ED. Feels that it is somewhat similar to when needing he was short of breath, nauseous, and he thinks he may been a little diaphoretic. States he has not taken any of his medications in at least a year. States he was on a cholesterol medicine and he believes he is on Tenormin. Has been taking aspirin. Patient has history of CAD with reported 3 stents. Hyperlipidemia tobacco abuse. He denies hypertension. Patient was smoking almost 2 packs of cigarettes a day approximately 20 years but over the last 3 years has decreased to about three-quarter pack a day. He was recently living in a motel, states his mother paid for 1 week but is not homeless again. He has on average 6-8 beers per day. Denies illicit drug use. States there is family history of CAD. - Diagnosis (1) Chest pain (2) History of coronary artery disease (3) History of heart artery stent (4) Tobacco abuse (5) Hyperlipidemia (6) Alcohol abuse (7) Lung nodules Review of Systems General: Patient denies fevers, chills, and recent travel. HEENT: Patient denies headache, sore throat, difficulty swallowing. Cardiovascular: Has the chest discomfort as mentioned above. Denies sensation of heart beating rapidly or irregularly. No syncope. There was diaphoresis per Respiratory: He was short of breath. Denies inspirational chest discomfort. Denies coughing wheezing or hemoptysis. GI: He was nauseous. Patient denies vomiting, diarrhea, abdominal pain, bloody stools. Musculoskeletal: Patient denies joint pain or edema. Denies calf pain or edema. Neurovascular: Patient denies numbness, tingling, weakness in extremities. Denies headache. Endocrine: Denies polyuria and polydipsia. Hematologic: Denies easy bruising. Skin: Denies rash or itching. PMFSH - History History Provided By: Patient - Medical History Medical History: Medical History (Last Updated 06/20/18 @ 16:46 by Gretel Lambert) ETOH abuse Hypercholesteremia Hypertension Myocardial infarct - Surgical History Surgical History: Surgical History (Last Reviewed 05/17/18 @ 23:03 by JHONATAN Monae) History of foot surgery - Tobacco History Second Hand Smoke Exposure: No Tobacco Use In Past 30 Days: Yes Smoking Status: Former smoker Tobacco Type: Cigarettes - Alcohol History How Often Do You Have a Drink Containing Alcohol: 2 to 3 times a week - Substance Use History Substance History: No History of Abuse - Travel History Recent Travel in the [facility] Within the Last 8 Weeks: No Recent Travel Out of the Country Within the Last 8 Weeks: No - Immunization History Tetanus Immunization: >5 Years Tetanus Immunization Year if Known: 2017 Hx Influenza Vaccine This Season: No Medications and Allergies Active Medications: Active Medications Albuterol (Duoneb Neb (Prn)) 1 ampul NEB Q4HR NEB PRN PRN Reason: SHORTNESS OF BREATH/WHEEZING Aspirin (Aspirin) 325 mg PO DAILY [facility] Last Admin: 06/21/18 09:48 Dose: 325 mg Clonidine HCl (Catapres) 0.1 mg PO Q6H PRN PRN Reason: SBP >165 OR DBP > 110 Sodium Chloride (Ns Flush) 2 ml IV.FLUSH UNSCH PRN PRN Reason: FLUSH AFTER USING IV ACCESS Sodium Chloride (Ns Flush) 2 ml IV.FLUSH BID [facility] Last Admin: 06/21/18 09:48 Dose: 2 ml Sodium Chloride (Ns Flush) 2 ml IV.FLUSH PRN PRN PRN Reason: FLUSH AFTER USING IV ACCESS Allergies Allergy/AdvReac Type Severity Reaction Status Date / Time No Known Allergies Allergy Unverified 06/20/18 16:33 Home Medications Medication Instructions Recorded Confirmed Type No Known Home Medications 06/20/18 06/20/18 History Exam Vital signs: Vital Signs 06/20/18 16:33 06/20/18 16:46 06/20/18 18:41 Temperature 98.6 F Pulse Rate 94 H 90 Respiratory Rate 17 19 Blood Pressure 105/75 149/99 H Pulse Oximetry 95 95 93 L 06/20/18 19:15 06/20/18 21:40 06/20/18 23:30 Temperature Pulse Rate 90 96 H Respiratory Rate 14 Blood Pressure 146/89 H Pulse Oximetry 94 L 98 06/20/18 23:37 06/20/18 23:47 06/21/18 03:46 Temperature 98.4 F 97.9 F Pulse Rate 92 H 70 Respiratory Rate 20 18 16 Blood Pressure 170/120 H 165/112 H Pulse Oximetry 99 98 06/21/18 07:36 06/21/18 07:38 06/21/18 09:00 Temperature 98.2 F Pulse Rate 83 79 76 Respiratory Rate 16 Blood Pressure 165/119 H 165/121 H Pulse Oximetry 97 Intake & Output 06/20/18 06/21/18 06/21/18 18:59 06:59 18:59 Intake Total 500 / 500 200 / 200 Balance 500 / 500 200 / 200 Weight 77.111 kg 77.111 kg Intake: IV 500 / 500 NS Inj 500 ML @ 500 mls/hr IV. 500 / 500 SIG ONCE ONE Rx#:[id number] Oral 200 / 200 Other: # Voids 1 Date of Last Bowel Movement 06/20/18 Weight On Admission 77.111 kg Narrative: GENERAL: This is a well-nourished, well-developed patient, in no apparent distress. Patient speaks in clear complete sentences. Patient is pleasant. HEENT: Head is atraumatic and normocephalic. Neck is supple without lymphadenopathy and trachea is midline. No JVD or carotid bruits. CARDIOVASCULAR: Regular rate and rhythm without murmurs, gallops, or rubs. RESPIRATORY: Clear to auscultation. Breath sounds equal bilaterally. No wheezes , rales, or rhonchi. Chest wall is nontender. No use of accessory muscles. GASTROINTESTINAL: Abdomen is nontender, nondistended. Abdomen soft. No obvious pulsatile mass or bruit. No CVA tenderness. Strong femoral pulses bilaterally. Normal bowel sounds in all quadrants. MUSCULOSKELETAL: Patient is moving upper and lower extremities freely. No calf tenderness or edema, no Homans sign. Strong pulses in upper and lower extremities. NEUROLOGICAL: Patient is alert and oriented. Cranial nerves 2-12 are grossly intact. No focal deficits and speech is clear. SKIN: No rash and turgor is normal. Results 06/20/18 16:42 06/20/18 16:51 Cardiac Enzymes 06/20/18 06/20/18 06/21/18 Range/Units 16:51 21:39 00:00 AST 73 H (15-37) U/L Troponin I Less than 0.02 L Less than 0.02 L Less than 0.02 L (0.02-0.05) ng/mL Coagulation 06/20/18 Range/Units 16:42 PT 10.8 (9.8-11.6) sec APTT 25.4 (24.3-30.1) sec CBC 06/20/18 Range/Units 16:42 WBC 11.0 (4.0-11.0) th/mm3 RBC 4.42 L (4.50-5.90) mil/mm3 Hgb 14.8 (13.0-17.0) gm/dL Hct 41.7 (39.0-51.0) % Plt Count 243 (150-450) th/mm3 Neut # (Auto) 9.2 H (1.8-7.7) th/mm3 Lymph # (Auto) 0.7 L (1.0-4.8) th/mm3 Rolette # (Auto) 0.8 (0.0-0.9) th/mm3 Eos # (Auto) 0.1 (0.0-0.4) th/mm3 Baso # (Auto) 0.2 (0.0-0.2) th/mm3 Comprehensive Metabolic Panel 06/20/18 Range/Units 16:51 Sodium 142 (136-145) meq/L Potassium 3.3 L (3.5-5.1) meq/L Chloride 102 (98-107) meq/L Carbon Dioxide 30.5 (21.0-32.0) meq/L BUN 13 (7-18) mg/dL Creatinine 1.50 H (0.60-1.30) mg/dL Calcium 8.8 (8.5-10.1) mg/dL AST 73 H (15-37) U/L ALT 53 (12-78) U/L Alkaline Phosphatase 89 (45-117) U/L Total Protein 7.7 (6.4-8.2) g/dL Albumin 3.1 L (3.4-5.0) g/dL Intake and Output 06/20/18 06/21/18 06/21/18 22:59 06:59 14:59 Intake Total 500 / 500 200 / 200 Balance 500 / 500 200 / 200 Intake: IV 500 / 500 NS Inj 500 ML @ 500 mls/hr IV. 500 / 500 SIG ONCE ONE Rx#:[id number] Oral 200 / 200 Other: # Voids 1 Date of Last Bowel Movement 06/20/18 Weight 77.111 kg 77.111 kg Weight On Admission 77.111 kg EKG interpretations - EKG EKG shows: sinus rhythm (EKGs are sinus rhythm with nonspecific ST-T changes.) Caprini VTE Risk Assessment Caprini VTE Risk Assessment: No/Low Risk (score <= 1) Caprini Risk Assessment Model: Point Value = 1 Point Value = 2 Point Value = 3 Point Value = 5 Age 41-60 Minor surgery BMI > 25 kg/m2 Swollen legs Varicose veins or History of unexplained or recurrent spontaneous Oral contraceptives or hormone replacement Sepsis (< 1 month) Serious lung disease, including pneumonia (< 1 month) Abnormal pulmonary function Acute myocardial infarction Congestive heart failure (< 1 month) History of inflammatory bowel disease Medical patient at bed rest Age 61-74 Arthroscopic surgery Major open surgery (> 45 min) Laparoscopic surgery (> 45 min) Malignancy Confined to bed (> 72 hours) Immobilizing plaster cast Central venous access Age >= 75 History of VTE Family history of VTE Factor V Leiden Prothrombin [id number] Lupus anticoagulant Anticardiolipin antibodies Elevated serum homocysteine Heparin-induced thrombocytopenia Other congenital or acquired thrombophilia Stroke (< 1 month) Elective arthroplasty Hip, pelvis, or leg fracture Acute spinal cord injury (< 1 month) Prophylaxis Regimen: Total Risk Factor Score Risk Level Prophylaxis Regimen 0-1 Low Early ambulation 2 Moderate Order ONE of the following: *Sequential Compression Device (SCD) *Heparin 5000 units SQ BID 3-4 Higher Order ONE of the following medications: *Heparin 5000 units SQ TID *Enoxaparin/Lovenox 40 mg SQ daily (WT < 150 kg, CrCl > 30 mL/min) *Enoxaparin/Lovenox 30 mg SQ daily (WT < 150 kg, CrCl > 10-29 mL/min) *Enoxaparin/Lovenox 30 mg SQ BID (WT < 150 kg, CrCl > 30 mL/min) AND/OR *Sequential Compression Device (SCD) 5 or more Highest Order ONE of the following medications: *Heparin 5000 units SQ TID (Preferred with Epidurals) *Enoxaparin/Lovenox 40 mg SQ daily (WT < 150 kg, CrCl > 30 mL/min) *Enoxaparin/Lovenox 30 mg SQ daily (WT < 150 kg, CrCl > 10-29 mL/min) *Enoxaparin/Lovenox 30 mg SQ BID (WT < 150 kg, CrCl > 30 mL/min) AND *Sequential Compression Device (SCD) Assessment and Plan - Assessment (1) Chest pain Code(s): R07.9 - Chest pain, unspecified Status: Acute (2) History of coronary artery disease Code(s): Z86.79 - Personal history of other diseases of the circulatory system Status: Acute (3) History of heart artery stent Code(s): Z95.5 - Presence of coronary angioplasty implant and graft Status: Acute (4) Tobacco abuse Code(s): Z72.0 - Tobacco use Status: Acute (5) Hyperlipidemia Code(s): E78.5 - Hyperlipidemia, unspecified Status: Acute (6) Alcohol abuse Code(s): F10.10 - Alcohol abuse, uncomplicated Status: Acute (7) Lung nodules Code(s): R91.8 - Other nonspecific abnormal finding of lung field Status: Acute - Plan * Chest pain: Patient has had serial cardiac enzymes and EKGs for ruling out purposes. He has been seen by Dr. Pathak of cardiology in the chest pain center. He will undergo a Lexiscan and be discharged home if the stress test is nonischemic with instructions to follow-up with PCP and outpatient locomotive operator. Return to ED for interval issues. * History of CAD: Patient states he has 3 stents. Will reassess with stress test. He will need to follow-up with outpatient physician for further management and to be restarted on multiple medications. * Tobacco abuse: Patient counseled on importance of smoking cessation. * Alcohol abuse: Patient counseled on importance of decreasing alcohol intake. * Pulmonary nodules: Pulmonary nodules were observed on CT of his thoracic and abdominal aorta. Radiologist recommended repeat CT in 6-12 months. Patient should have this followed. Patient stable at this time. He is agreeable to this plan. H&P: Quality - VTE Deep Vein Thrombosis/Pulmonary Embolism Present on Admission: No
[2018-06-21] MEDS ORDERED: Regadenoson Inj 0.4 MG/5 ML Syringe IV.PUSH ONE (13:13)
--- NOTE | 2018-06-21 14:07 | TR ---
Date Performed: 06/21/2018 Time Performed: 13:42:06 DOCTOR: Kings Pathak DRUG LIST: CLINICAL HISTORY: CHEST PAIN REASON FOR TEST: CHEST PAIN REASON FOR ENDING: OBSERVATION: CONCLUSION: COMMENTS: Lexiscan stress test was performed under standard four minute protocol. Radionuclide was injected one minute prior to ending the test. No electrocardiographic abormalities were present t o suggest ischemia. Nuclear imaging and interpretation are pending.
--- NOTE | 2018-06-21 14:15 | ECG ---
Date Performed: 06/21/2018 Time Performed: 00:00:00 PTAGE: 43 years EKG: Sinus rhythm NONSPECIFIC T-WAVE ABNORMALITY BORDERLINE ECG PREVIOUS TRACING : 06/20/2018 22.03 Since previous tracing, no significant change noted DOCTOR: Kings Pathak Interpretating Date/Time 06/21/2018 14:14:11
--- NOTE | 2018-06-21 14:19 | ECG ---
Date Performed: 06/20/2018 Time Performed: 22:03:05 PTAGE: 43 years EKG: Sinus rhythm NONSPECIFIC T-WAVE ABNORMALITY BORDERLINE ECG PREVIOUS TRACING : 06/20/2018 22.02 Compared to previous tracing, STT wave changes have improve d. DOCTOR: Kings Pathak Interpretating Date/Time 06/21/2018 14:17:45
--- NOTE | 2018-06-21 14:46 | NM ---
EXAM DATE: 06/21/2018 2:35 PM EDT AGE/SEX: 43 years / Male INDICATIONS:Angina. Myocardial infarction Substernal chest pain. CLINICAL DATA: This is the patient's initial encounter. Patient reports that signs and symptoms have been present for 1 day and indicates a pain score of 4/10. MEDICAL/SURGICAL HISTORY: Hypertension. . Foot. COMPARISON: No prior exams available for comparison. DOSE: 8.5 mCi Tc 99m Myoview at rest 25.4 mCi [id number] at stress 0.4 mg Lexiscan STRESS SYMPTOMS: Weird feeling. EJECTION FRACTION: 44 % TECHNIQUE: The patient underwent pharmacologic stress with infusion of prescribed dose. Continuous ECG tracing was monitored during stress. Gated SPECT imaging was performed after stress and conventi onal SPECT imaging was performed at rest. The examination was performed on a SPECT/CT scanner, both attenuation and non-corrected datasets were reviewed. FINDINGS: Distribution: The maximum perfused segment at stress is in the inferior wall. Perfusion Study: There is a fixed defect involving the lateral wall. No reversible defects observed .. Gated Study: There are intact wall motion and wall thickening without hypokinetic or dyskinetic segm ents. The ejection fraction is calculated at 44%. RISK CATEGORY: Low (<1% Annual Motality Rate) CONCLUSION: 1. Fixed defect involving the lateral wall. 2. No reversible defects to suggest acute ischemia. Electronically signed by: Abelino Shaw MD 06/21/2018 2:45 PM EDT
== END 2018-06-21 16:19 | disposition home or self-care (01) ==
LOC: NEPC 16:21 → NEDA 16:21 → NEPFCDU 22:23
DX: E78.00 Pure hypercholesterolemia, unspecified; R42 Dizziness and giddiness; Z82.49 Family history of ischemic heart disease and other diseases of the circulatory system; R07.9 Chest pain, unspecified; R91.8 Other nonspecific abnormal finding of lung field; F17.210 Nicotine dependence, cigarettes, uncomplicated; I10 Essential (primary) hypertension; I25.2 Old myocardial infarction; F10.10 Alcohol abuse, uncomplicated; Z95.5 Presence of coronary angioplasty implant and graft; E78.5 Hyperlipidemia, unspecified; R94.31 Abnormal electrocardiogram [ECG] [EKG]; I25.10 Atherosclerotic heart disease of native coronary artery without angina pectoris